=== PATIENT | female | born 1970 | race Caucasian/White ===

== ENCOUNTER 2018-04-17 18:45 | Emergency (ER) | payer SELFPAY ==
[2018-04-17] MEDS ORDERED: ACETAMINOPHEN 325 MG TABLET ONE (19:27)
--- NOTE | 2018-04-17 20:15 | RAD REPORT ---
EXAM DESCRIPTION: RAD - Wrist Left 3 View - 04/17/2018 7:39 pm CLINICAL HISTORY: Left wrist pain status post injury FINDINGS: No fracture or dislocation is seen. If the patient continues to have symptoms to suggest an occult fracture then a followup plain film se sia in 7 days would be recommended
--- NOTE | 2018-04-17 20:15 | RAD REPORT ---
EXAM DESCRIPTION: RAD - Forearm Left - 04/17/2018 7:39 pm CLINICAL HISTORY: Left forearm pain status post injury FINDINGS: No fracture is seen
--- NOTE | 2018-04-17 20:22 | EDPHYS ---
Physician Documentation [facility] Name: Cora Mireles Age: 48 yrs Sex: Female : 1970 Arrival Date: 04/17/2018 Time: 18:47 Bed 13 Private MD: Siva Reyes R ED Physician Jeancarlos Spicer HPI: 04/17 19:09 This 48 yrs old Female presents to ER via Ambulatory with complaints of Arm cp Injury. 19:09 The patient or guardian complains of injury, pain, that is acute, tenderness. The cp complaints affect the left wrist and palmar aspect of left forearm. 19:10 Context: resulted from a fall, while walking. cp 19:10 Onset: The symptoms/episode began/occurred 5 day(s) ago. Treatment prior to arrival cp includes: chelo wrap, icing the affected extremity. Associated signs and symptoms: Pertinent negatives: decreased range of motion, numbness. 19:[address] Reyes this week and being told to ice wrist. No xrays were cp taken. Pain became worse after striking wrist against door. 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 - Social history:: Smoking status: Patient uses tobacco products, smokes one pack cigarettes per day. - Ebola Screening: : Patient denies travel to an Ebola-affected area in the 21 days before illness onset. ROS: 19:15 Constitutional: Negative for body aches, chills, fever, poor PO intake. cp 19:15 Neck: Negative for pain with movement, pain at rest, stiffness. cp 19:15 Cardiovascular: Negative for chest pain, palpitations. 19:15 Respiratory: Negative for cough, shortness of breath, wheezing. 19:15 MS/extremity: Positive for pain, swelling, tenderness, of the left wrist, Negative for deformity, paresthesias. 19:15 Skin: Negative for cellulitis, rash. 19:15 Neuro: Negative for altered mental status, headache, weakness. 19:15 All other systems are negative. Exam: 19:25 Constitutional: The patient appears in no acute distress, alert, awake, non-toxic, well cp developed, well nourished. 19:25 Head/Face: Normocephalic, atraumatic. cp 19:25 Eyes: Periorbital structures: appear normal, Conjunctiva: normal, no exudate, no injection, Lids and lashes: appear normal, bilaterally. 19:25 ENT: External ear(s): are unremarkable, Nose: is normal, Posterior pharynx: is normal, airway is patent, no erythema, no exudate. 19:25 Neck: External neck: is normal, ROM/movement: is normal, is supple, without pain, no range of motions limitations, no nuchal rigidity. 19:25 Chest/axilla: Inspection: normal. 19:25 Cardiovascular: Rate: normal. 19:25 Respiratory: the patient does not display signs of respiratory distress, Respirations: normal. 19:25 Abdomen/GI: Exam negative for discomfort, distension, guarding, Inspection: abdomen appears normal. 19:25 Musculoskeletal/extremity: Extremities: grossly normal except: noted in the left wrist: ecchymosis, pain, swelling, tenderness, There is no evidence of deformity. 19:25 Skin: cellulitis, is not appreciated, no rash present. Vital Signs: 18:56 BP 117 / 84; Pulse 102; Resp 20; Temp 97.6; Pulse Ox 100% on R/A; Weight 58.97 kg (R); aj1 Height 5 ft. 4 in. (162.56 cm) (R); Pain 5/10; 19:15 BP 115 / 80; Pulse 95; Resp 16; Pulse Ox 99% on R/A; aa1 18:56 Body Mass Index 22.31 (58.97 kg, 162.56 cm) aj1 MDM: 19:02 Patient medically screened. cp 20:00 Differential diagnosis: dislocation, closed fracture, contusion, tendonitis. cp 20:20 Data reviewed: vital signs, nurses notes, radiologic studies, plain films. cp 20:20 Test interpretation: by ED physician or midlevel provider: plain radiologic studies. cp Counseling: I had a detailed discussion with the patient and/or guardian regarding: the historical points, exam findings, and any diagnostic results supporting the discharge/admit diagnosis, radiology results. 20:20 Response to treatment: the patient's symptoms have mildly improved after treatment, and cp as a result, I will discharge patient. 04/17 19:08 Order name: MELYSSA Wrist LEFT 3 view; Complete Time: 20:18 cp 04/17 19:12 Order name: MELYSSA Forearm LEFT; Complete Time: 20:18 cp Administered Medications: 19:25 Drug: Tylenol 650 mg {Note: pain score of 7/10. given by diandra VALLADARES.} Route: PO; aa1 20:30 Follow up: Response: No adverse reaction rr5 Disposition: 21:00 Chart complete. cp Disposition: 04/17/18 20:21 Discharged to Home. Impression: Pain in left wrist. - Condition is Stable. - Discharge Instructions: Wrist Pain. - Prescriptions for Tramadol 50 mg Oral Tablet - take 1 tablet by ORAL route every 8 hours as needed; 12 tablet. - Medication Reconciliation Form, Thank You Letter, Antibiotic Education, Prescription Opioid Use form. - Follow up: Gabe Nelson MD; When: 2 - 3 days; Reason: Recheck today's complaints. - Problem is new. - Symptoms have improved. Addendum: 04/19/2018 04:08 Co-signature as Attending Physician, Jeancarlos Spicer MD I agree with the assessment and w a plan of care. Signatures: Dispatcher [employer] EDLuz Maria Jeff RN RN aj1 Modesta Anne RN RN aa1 Mark Berumen PA PA cp Jeancarlos Spicer MD MD wa Roque, Raymond RN rr5 Corrections: (The following items were deleted from the chart) 04/17 20:50 20:21 04/17/2018 20:21 Discharged to Home. Impression: Pain in left wrist. Condition is aa1 Stable. Forms are Medication Reconciliation Form, Thank You Letter, Antibiotic Education, Prescription Opioid Use. Follow up: Dr. Gabe Nelson; When: 2 - 3 days; Reason: Recheck today's complaints. Problem is new. Symptoms have improved. cp
--- NOTE | 2018-04-17 20:22 | ER ---
Nurse's Notes [facility] Name: Cora Mireles Age: 48 yrs Sex: Female : 1970 Arrival Date: 04/17/2018 Time: 18:47 Bed 13 Private MD: Siva Reyes R Diagnosis: Pain in left wrist Presentation: 04/17 18:51 Presenting complaint: Patient states: "last Saturday I was walking my dog and I tripped aj1 over him and I landed on my knees and my hands, my left hand was bruised and swollen. I saw Dr. Reyes and he said to ice it and if the pain got worse to come to the ER. Today I hit the door with my hand and it started hurting bad.". Transition of care: patient was not received from another setting of care. Onset of symptoms was April 17, 2018. Risk Assessment: Do you want to hurt yourself or someone else? Patient reports no desire to harm self or others. Initial Sepsis Screen: Does the patient meet any 2 criteria? HR > 90 bpm. No. Patient's initial sepsis screen is negative. Does the patient have a suspected source of infection? No. Patient's initial sepsis screen is negative. Care prior to arrival: None. 18:51 Method Of Arrival: Ambulatory aj1 18:51 Acuity: STEPHEN 4 aj1 Triage Assessment: 18:56 General: Appears in no apparent distress. comfortable, Behavior is calm, cooperative, aj1 appropriate for age. Pain: Complains of pain in left arm Pain currently is 5 out of 10 on a pain scale. Neuro: Level of Consciousness is awake, alert, obeys commands. Cardiovascular: Patient's skin is warm and dry. Respiratory: Airway is patent Respiratory effort is even, unlabored, Respiratory pattern is regular, symmetrical. Musculoskeletal: Range of motion: limited in left wrist. Injury Description: Patient fell from standing position. 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 - Social history:: Smoking status: Patient uses tobacco products, smokes one pack cigarettes per day. - Ebola Screening: : Patient denies travel to an Ebola-affected area in the 21 days before illness onset. Screenin:00 Abuse screen: Denies threats or abuse. Denies injuries from another. Nutritional aa1 screening: No deficits noted. Tuberculosis screening: No symptoms or risk factors identified. Fall Risk None identified. Assessment: 19:15 General: Appears in no apparent distress. uncomfortable, Behavior is calm, cooperative. aa1 Pain: Complains of pain in left arm Pain does not radiate. Pain currently is 7 out of 10 on a pain scale. Quality of pain is described as aching, Pain began gradually, Is intermittent, Alleviated by medications, Aggravated by increased activity, repositioning, weight bearing. 19:15 Neuro: Level of Consciousness is awake, alert, obeys commands, Oriented to person, aa1 place, time, situation, Cardiovascular: Reports None. Respiratory: Airway is patent. GI: Abdomen is flat, Patient currently denies epigastric pain, nausea, vomiting. : No signs and/or symptoms were reported regarding the genitourinary system. EENT: No signs and/or symptoms were reported regarding the EENT system. Derm: No signs and/or symptoms reported regarding the dermatologic system. Skin is intact, Skin is dry, Skin is pink, warm \\T\\ dry. Musculoskeletal: Capillary refill < 3 seconds, Range of motion: limited in left arm. 20:48 Reassessment: Patient appears in no apparent distress at this time. Patient is alert, aa1 oriented x 3, equal unlabored respirations, skin warm/dry/pink. discuss follow up instruction and medication denies question and concern at this time. Vital Signs: 18:56 BP 117 / 84; Pulse 102; Resp 20; Temp 97.6; Pulse Ox 100% on R/A; Weight 58.97 kg (R); aj1 Height 5 ft. 4 in. (162.56 cm) (R); Pain 5/10; 19:15 BP 115 / 80; Pulse 95; Resp 16; Pulse Ox 99% on R/A; aa1 18:56 Body Mass Index 22.31 (58.97 kg, 162.56 cm) aj1 ED Course: 18:47 Patient arrived in ED. sb2 18:48 Siva Reyes MD is Private Physician. sb2 18:50 Mark Berumen PA is PHCP. cp 18:50 Jeancarlos Spicer MD is Attending Physician. cp 18:55 Triage completed. aj1 18:56 Arm band placed on Patient placed in an exam room. aj1 19:39 XRAY Wrist LEFT 3 view In Process Unspecified. EDMS 19:39 XRAY Forearm LEFT In Process Unspecified. EDMS 20:00 Patient has correct armband on for positive identification. Bed in low position. Call aa1 light in reach. 20:00 No provider procedures requiring assistance completed. Patient did not have IV access aa1 during this emergency room visit. 20:21 Gabe Nelson MD is Referral Physician. cp 20:48 Velcro wrist splint applied to left wrist. aa1 Administered Medications: 19:25 Drug: Tylenol 650 mg {Note: pain score of 7/10. given by chilo VALLADARES.} Route: PO; aa1 20:30 Follow up: Response: No adverse reaction rr5 Outcome: 20:00 Discharged to home ambulatory. aa1 20:00 Condition: stable 20:00 Discharge instructions given to patient, Instructed on discharge instructions, follow up and referral plans. medication usage, Demonstrated understanding of instructions, follow-up care, medications, Prescriptions given X 1. 20:21 Discharge ordered by MD. cp 20:50 Patient left the ED. aa1 Signatures: Dispatcher [employer] EDLuz Maria Jeff RN RN aj1 Modesta Anne RN RN aa1 Mark Berumen PA PA cp Jade Lowry sb2 Chilo Henry, BLAINE RN rr5 Corrections: (The following items were deleted from the chart) 20:55 20:53 Reassessment: Patient appears in no apparent distress at this time. Patient is aa1 alert, oriented x 3, equal unlabored respirations, skin warm/dry/pink. discuss follow up instruction and medication denies question and concern at this time. aa1
== END 2018-04-17 20:50 | disposition home or self-care (01) ==
LOC: ER 18:45
DX: M25.532 Pain in left wrist (principal); F17.210 Nicotine dependence, cigarettes, uncomplicated; Z88.6 Allergy status to analgesic agent
CPT/HCPCS: 99284

== ENCOUNTER 2019-04-07 11:06 | Emergency (ER) | payer SELFPAY ==
[2019-04-07] MEDS ORDERED: MORPHINE 4 MG/ML SYR ONE ×2 (11:53→12:47)
[2019-04-07] MEDS ORDERED: NA CHLORIDE 0.9% 1,000 ML ONE (11:54)
[2019-04-07] MEDS ORDERED: ONDANSETRON 4 MG/2 ML VIAL ONE (11:54)
[2019-04-07 12:21] LABS: Basophils % 1.2 % (0-1.3); Hematocrit 28.2 % (36.0-45.0); Lymphocytes % 39.1 % (15.3-44.8); MPV 9.2 fL (7.6-11.3); RBC Red Blood Cell Count 3.69 M/uL (3.86-4.86)
[2019-04-07 13:21] LABS: ALT/SGPT 25 U/L (12-78); AST/SGOT 35 U/L (15-37); Albumin 3.7 g/dL (3.4-5.0); Alkaline Phosphatase 164 U/L (45-117); BUN Blood Urea Nitrogen 11 mg/dL (7-18); Bicarbonate 28 mmol/L (21-32); Bilirubin Direct < 0.1 mg/dL (0-0.2); Bilirubin Total 0.3 mg/dL (0.2-1.0); Glucose Level 89 mg/dL (74-106); Lipase 208 U/L (73-393); Potassium 3.7 mmol/L (3.5-5.1); Protein, Total 7.9 g/dL (6.4-8.2); Sodium Level 137 mmol/L (136-145)
[2019-04-07 13:30] LABS: Anisocytosis 2+; Blood Morphology Comment NOTED (NOT SEEN); Platelet Estimate ADEQ; Urine White Blood Cell Casts OK
[2019-04-07 13:31] LABS: Ovalocytes 1+; Rouleau NOTED
[2019-04-07] MEDS ORDERED: FENTANYL CITR 100 MCG/2 ML ONE ×2 (13:58→15:50)
--- NOTE | 2019-04-07 14:00 | RAD REPORT ---
EXAM DESCRIPTION: CT - Abdomen Pelvis W Contrast - 04/07/2019 1:36 pm CLINICAL HISTORY: ABD PAIN, prior gastric bypass, appendectomy, hysterectomy and cholecystectomy. COMPARISON: CT June 2017 and February 2014 TECHNIQUE: Biphasic, helical CT imaging of the abdomen and pelvis was performed following 100 ml non -ionic IV contrast. No oral contrast administered All CT scans are performed using dose optimization technique as appropriate and may include automated exposure control or mA/KV adjustment according to patient size. FINDINGS: No suspicious findings in the lung bases. Liver size is normal. No focal liver lesion is identifiable. There is very significant intrahepatic a nd extrahepatic biliary tree dilatation. Pattern is similar to both comparison studies. No suspicion for a duct stone or mass. This is greater than typical physiologic dilatation. Patient could have a c hronic stricture. Gallbladder and biliary tree are also without suspicious finding. Symmetric renal function is seen with no hydronephrosis or suspicious renal mass. No pyelonephritis o r acute parenchymal process. No bladder abnormalities. No adrenal abnormalities. No dilated bowel loops or bowel wall thickening. Moderate stool volume is present throughout the tort uous colon. Contrast material is present in the left side of the colon. This is potentially bismuth m edication. No p.o. contrast was administered for this exam. No free air, free fluid or inflammatory s tranding. No hernia, mass or bulky lymphadenopathy. No suspicious bony findings. IMPRESSION: Contrast enhanced CT abdomen and pelvis showing no acute finding. Patient has significant intrahepatic and extrahepatic biliary tree dilatation that is chronic in pres entation. Patient could have a stricture in the distal biliary tree. No acute finding suspected.
--- NOTE | 2019-04-07 16:36 | ER ---
Nurse's Notes [facility] Name: Cora Mireles Age: 49 yrs Sex: Female : 1970 Arrival Date: 04/07/2019 Time: 11:08 Bed 18 Private MD: Siva Reyes R Diagnosis: Unspecified abdominal pain Presentation: 04/07 11:16 Presenting complaint: Patient states: mid abd pain, coffee ground stools x 3 days. sv Transition of care: patient was not received from another setting of care. Onset of symptoms was April 04, 2019. Risk Assessment: Do you want to hurt yourself or someone else? Patient reports no desire to harm self or others. Care prior to arrival: Medication(s) given: Tylenol #3 2 tabs taken today. 11:16 Method Of Arrival: Ambulatory sv 11:16 Acuity: STEPHEN 3 sv 11:45 Initial Sepsis Screen: Does the patient meet any 2 criteria? No. Patient's initial aj1 sepsis screen is negative. Does the patient have a suspected source of infection? Yes: Acute abdominal pain. Triage Assessment: 11:18 General: Appears in no apparent distress. uncomfortable, Behavior is cooperative, sv appropriate for age, anxious. Pain: Complains of pain in abdomen. Neuro: Level of Consciousness is awake, alert, obeys commands, Gait is steady. Respiratory: Respiratory effort is even, unlabored, Respiratory pattern is regular, symmetrical. Historical: - Allergies: 11:18 NSAIDS; sv - PMHx: 11:18 Crohn's; RLS; sv - PSHx: 11:18 Gastric Bypass; Appendectomy; Hysterectomy; Cholecystectomy; Tonsillectomy; sv - Immunization history:: Adult Immunizations up to date. - Ebola Screening: : Patient denies travel to an Ebola-affected area in the 21 days before illness onset. - Social history:: Smoking status: . Screenin:43 Abuse screen: Denies threats or abuse. Denies injuries from another. Nutritional aj1 screening: No deficits noted. Tuberculosis screening: No symptoms or risk factors identified. Assessment: 11:43 General: Appears in no apparent distress. uncomfortable, Behavior is calm, cooperative, aj1 appropriate for age. Pain: Complains of pain in abdomen diffusely Pain does not radiate. Pain currently is 9 out of 10 on a pain scale. Neuro: Level of Consciousness is awake, alert, obeys commands, Oriented to person, place, time, situation. Cardiovascular: Patient's skin is warm and dry. Respiratory: Airway is patent Respiratory effort is even, unlabored, Respiratory pattern is regular, symmetrical. GI: Abdomen is non-distended, Bowel sounds present X 4 quads. Abd is soft X 4 quads Abd is non tender X 4 quads Reports diarrhea, nausea. : No signs and/or symptoms were reported regarding the genitourinary system. EENT: No signs and/or symptoms were reported regarding the EENT system. Derm: No signs and/or symptoms reported regarding the dermatologic system. Skin is pink, warm \T\ dry. normal. Musculoskeletal: No signs and/or symptoms reported regarding the musculoskeletal system. Circulation, motion, and sensation intact. 12:30 Reassessment: Patient states that her pain has not gotten any better. Notified PFabian Goncalves NP. 12:45 Reassessment: Patient appears in no apparent distress at this time. No changes from aj1 previously documented assessment. Patient and/or family updated on plan of care and expected duration. Pain level reassessed. Patient is alert, oriented x 3, equal unlabored respirations, skin warm/dry/pink. 13:41 Reassessment: Patient states that she is still having a lot of pain. Notified PFabian Goncalves NP. Vital Signs: 11:18 BP 142 / 70; Pulse 70; Resp 20; Temp 98(O); Pulse Ox 99% ; Weight 58.97 kg; Height 5 sv ft. 5 in. (165.10 cm); Pain 9/10; 12:49 BP 143 / 91; Pulse 57; Resp 17; Temp 97.6(TE); Pulse Ox 100% on R/A; mh5 14:49 BP 133 / 85; Pulse 49; Resp 16; Temp 98.1(TE); Pulse Ox 100% on R/A; mh5 11:18 Body Mass Index 21.63 (58.97 kg, 165.10 cm) sv ED Course: 11:08 Patient arrived in ED. as 11:08 Siva Reyes MD is Private Physician. as 11:17 Triage completed. sv 11:18 Arm band placed on. sv 11:22 Sebastian Goncalves NP is PHCP. pm1 11:22 Mark Prater MD is Attending Physician. pm1 11:34 Patient has correct armband on for positive identification. Bed in low position. Call [facility] light in reach. Side rails up X 1. Adult w/ patient. Pulse ox on. NIBP on. 11:38 Luz Maria Cox RN is Primary Nurse. aj1 11:43 No provider procedures requiring assistance completed. aj1 12:12 Initial lab(s) drawn, by tx, sent to lab. Inserted saline lock: 22 gauge in right hand, [facility] using aseptic technique. 12:13 Basic Metabolic Panel Sent. 5 12:13 CBC with Diff Sent. 5 12:13 Creatinine for Radiology Sent. 5 12:13 Hepatic Function Sent. 5 12:13 Lipase Sent. 5 12:21 Inserted saline lock: 22 gauge in left antecubital area, using aseptic technique. aj1 13:37 CT Abd/Pelvis - IV Contrast Only In Process Unspecified. 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 aj1 17:07 Awaiting: completion of IV abx PRIOR to discharge. tw2 Administered Medications: 12:20 Drug: morphine 4 mg Route: IVP; Site: left antecubital; aj1 13:00 Follow up: Response: No adverse reaction; Pain is decreased; RASS: Alert and Calm (0) aj1 12:20 Drug: Zofran 4 mg Route: IVP; Site: left antecubital; aj1 12:20 Drug: NS 0.9% 1000 ml Route: IV; Rate: 1000 ml; Site: left antecubital; aj1 12:50 Drug: morphine 4 mg Route: IVP; Site: left antecubital; aj1 14:00 Drug: fentaNYL (PF) 25 mcg Route: IVP; Site: right antecubital; aj1 15:52 Follow up: Response: No adverse reaction; Pain is unchanged, physician notified ss 15:52 Drug: fentaNYL (PF) 25 mcg Route: IVP; Site: left antecubital; ss 17:02 Drug: Durand 10 mg-325 mg 1 tabs Route: PO; tw2 17:06 Drug: Flagyl 500 mg Volume: 100 ml; Route: IVPB; Rate: 200 ml/hr; Infused Over: 30 tw2 mins; Site: left antecubital; 17:07 Drug: Cipro 500 mg Route: PO; tw2 Outcome: 16:35 Discharge ordered by pm1 18:20 Patient left the ED. ss Signatures: Dispatcher [employer] EDLuz Maria Jeff RN RN aj1 Ana María Hernandez RN RN sv Martinez, Amelia as Smirch, Shelby, RN RN ss Sebastian Goncalves, WIRELESS CELLULAR TECHNICIAN WIRELESS CELLULAR TECHNICIAN pm1 Nadiya Fuller RN RN tw2 Lea Iqbal [facility] Corrections: (The following items were deleted from the chart) 11:19 11:18 Pulse 70bpm; Resp 20bpm; sv sv 11:20 11:18 BP 85 / 70; Pulse 70bpm; Resp 20bpm; Pulse Ox 99%; Temp 98F Oral; 58.97 kg; sv Height 5 ft. 5 in.; BMI: 21.6; Pain 9/10; sv 11:37 11:35 BP 116 / 58; Pulse 69bpm; Resp 18bpm; Pulse Ox 99% RA; Temp 99.9F Oral; mh5 5 13:42 13:41 Reassessment: Patient states that she is still having a lot of pain aj1 aj1
--- NOTE | 2019-04-07 16:36 | EDPHYS ---
Physician Documentation [facility] Name: Cora Mireles Age: 49 yrs Sex: Female : 1970 Arrival Date: 04/07/2019 Time: 11:08 Bed 18 Private MD: Siva Reyes R ED Physician Mark Prater HPI: 04/07 11:46 This 49 yrs old Female presents to ER via Ambulatory with complaints of pm1 Crohns Flare. 11:46 The patient presents with abdominal pain in the right upper quadrant. pm1 11:46 Onset: The symptoms/episode began/occurred 3 day(s) ago. The symptoms do not radiate. pm1 Associated signs and symptoms: Pertinent positives: nausea, "coffee ground" stool. The symptoms are described as crampy, sharp. Modifying factors: The symptoms are alleviated by nothing, the symptoms are aggravated by food. Severity of pain: in the emergency department the pain is actually worse. The patient has experienced similar episodes in the past, today's symptoms are similar, to previous Crohn's Flare Up. The patient has not recently seen a physician, Sees Dr. Flores for GI. Historical: - Allergies: 11:18 NSAIDS; sv - PMHx: 11:18 Crohn's; RLS; sv - PSHx: 11:18 Gastric Bypass; Appendectomy; Hysterectomy; Cholecystectomy; Tonsillectomy; sv - Immunization history:: Adult Immunizations up to date. - Ebola Screening: : Patient denies travel to an Ebola-affected area in the 21 days before illness onset. - Social history:: Smoking status: . ROS: 11:46 Eyes: Negative for injury, pain, redness, and discharge, ENT: Negative for injury, pm1 pain, and discharge, Neck: Negative for injury, pain, and swelling, Cardiovascular: Negative for chest pain, palpitations, and edema, Respiratory: Negative for shortness of breath, cough, wheezing, and pleuritic chest pain. 11:46 Back: Negative for injury and pain, : Negative for injury, bleeding, discharge, and swelling, MS/Extremity: Negative for injury and deformity, Skin: Negative for injury, rash, and discoloration, Neuro: Negative for headache, weakness, numbness, tingling, and seizure. 11:46 Constitutional: Positive for poor PO intake, Negative for chills, fever. 11:46 Abdomen/GI: Positive for abdominal pain, nausea, rectal bleeding, Negative for vomiting, diarrhea. Exam: 11:46 Constitutional: This is a well developed, well nourished patient who is awake, alert, pm1 and in no acute distress. Head/Face: Normocephalic, atraumatic. Eyes: Pupils equal round and reactive to light, extra-ocular motions intact. Lids and lashes normal. Conjunctiva and sclera are non-icteric and not injected. Cornea within normal limits. Periorbital areas with no swelling, redness, or edema. ENT: Nares patent. No nasal discharge, no septal abnormalities noted. Tympanic membranes are normal and external auditory canals are clear. Oropharynx with no redness, swelling, or masses, exudates, or evidence of obstruction, uvula midline. Mucous membranes moist. Neck: Trachea midline, no thyromegaly or masses palpated, and no cervical lymphadenopathy. Supple, full range of motion without nuchal rigidity, or vertebral point tenderness. No Meningismus. Chest/axilla: Normal chest wall appearance and motion. Nontender with no deformity. No lesions are appreciated. Cardiovascular: Regular rate and rhythm with a normal S1 and S2. No gallops, murmurs, or rubs. Normal PMI, no JVD. No pulse deficits. Respiratory: Lungs have equal breath sounds bilaterally, clear to auscultation and percussion. No rales, rhonchi or wheezes noted. No increased work of breathing, no retractions or nasal flaring. 11:46 Back: No spinal tenderness. No costovertebral tenderness. Full range of motion. Skin: Warm, dry with normal turgor. Normal color with no rashes, no lesions, and no evidence of cellulitis. MS/ Extremity: Pulses equal, no cyanosis. Neurovascular intact. Full, normal range of motion. 11:46 Abdomen/GI: Inspection: abdomen appears normal, Bowel sounds: normal, Palpation: soft, mild abdominal tenderness, in the right upper quadrant, mass, is not appreciated, rebound tenderness, is not appreciated. 11:46 Neuro: Orientation: is normal, Motor: is normal, moves all fours, Sensation: is normal, no obvious gross deficits. 13:51 Abdomen/GI: Rectal exam: rectal tone normal, Stool: brown, guaiac negative, pm1 hemorrhoid(s), are not appreciated, mass, is not appreciated, swelling, is not appreciated, Solar Tech: Luz Maria VALLADARES. Vital Signs: 11:18 BP 142 / 70; Pulse 70; Resp 20; Temp 98(O); Pulse Ox 99% ; Weight 58.97 kg; Height 5 sv ft. 5 in. (165.10 cm); Pain 9/10; 12:49 BP 143 / 91; Pulse 57; Resp 17; Temp 97.6(TE); Pulse Ox 100% on R/A; mh5 14:49 BP 133 / 85; Pulse 49; Resp 16; Temp 98.1(TE); Pulse Ox 100% on R/A; mh5 11:18 Body Mass Index 21.63 (58.97 kg, 165.10 cm) sv MDM: 11:27 Patient medically screened. pm1 16:14 Physician consultation: Alessandro Whitney MD regarding CT interpretation: I discussed the pm1 findings with him and told him I considered MRCP. He said that it is not necessary because the intrahepatic and extrahepatic biliary tree dilatation is chronic in presentation. Patient has had her gallbladder removed. No acute process of biliary tree.. 16:31 Data reviewed: vital signs. Data interpreted: Pulse oximetry: on room air is 100 %. pm1 Interpretation: normal. Counseling: I had a detailed discussion with the patient and/or guardian regarding: the historical points, exam findings, and any diagnostic results supporting the discharge/admit diagnosis, lab results, radiology results, the need for outpatient follow up, to return to the emergency department if symptoms worsen or persist or if there are any questions or concerns that arise at home. 16:33 ED course: Discussed with attending Carolina Prater and Brian for Crohn's flare up is pm1 appropriate. Additionally I will discharge the patient home with pain medication and antiemetic. Recommended to patient to follow up with her GI physician. Possible additional differentials may require endoscopy to evaluate and rule out. 04/07 11:36 Order name: Basic Metabolic Panel; Complete Time: 13:26 pm1 04/07 11:36 Order name: CBC with Diff; Complete Time: 13:44 pm1 04/07 11:36 Order name: Creatinine for Radiology; Complete Time: 13:44 pm1 04/07 11:36 Order name: Hepatic Function; Complete Time: 13:26 pm1 04/07 11:36 Order name: Lipase; Complete Time: 13:26 pm1 04/07 13:31 Order name: CBC Smear Scan; Complete Time: 13:44 EDMS 04/07 11:36 Order name: CT Abd/Pelvis - IV Contrast Only; Complete Time: 15:39 pm1 04/07 13:52 Order name: Occult Blood--Ancillary; Complete Time: 15:12 bd 04/07 11:36 Order name: IV Saline Lock; Complete Time: 12:13 pm1 04/07 11:36 Order name: Labs collected and sent; Complete Time: 12:21 pm1 04/07 12:38 Order name: Labs - recollect needed; Complete Time: 12:58 bd Administered Medications: 12:20 Drug: morphine 4 mg Route: IVP; Site: left antecubital; aj1 13:00 Follow up: Response: No adverse reaction; Pain is decreased; RASS: Alert and Calm (0) aj1 12:20 Drug: Zofran 4 mg Route: IVP; Site: left antecubital; aj1 12:20 Drug: NS 0.9% 1000 ml Route: IV; Rate: 1000 ml; Site: left antecubital; aj1 12:50 Drug: morphine 4 mg Route: IVP; Site: left antecubital; aj1 14:00 Drug: fentaNYL (PF) 25 mcg Route: IVP; Site: right antecubital; aj1 15:52 Follow up: Response: No adverse reaction; Pain is unchanged, physician notified ss 15:52 Drug: fentaNYL (PF) 25 mcg Route: IVP; Site: left antecubital; ss 17:02 Drug: Dillard 10 mg-325 mg 1 tabs Route: PO; tw2 17:06 Drug: Flagyl 500 mg Volume: 100 ml; Route: IVPB; Rate: 200 ml/hr; Infused Over: 30 tw2 mins; Site: left antecubital; 17:07 Drug: Cipro 500 mg Route: PO; tw2 Disposition: 04/08 07:00 Co-signature as Attending Physician, Mark Prater MD I agree with the assessment and carolynn plan of care. Disposition: 04/07/19 16:35 Discharged to Home. Impression: Unspecified abdominal pain. - Condition is Stable. - Discharge Instructions: Abdominal Pain, Adult, Crohn Disease. - Prescriptions for Flagyl 500 mg Oral Tablet - take 1 tablet by ORAL route every 8 hours for 10 days; 30 tablet. Cipro 500 mg Oral Tablet - take 1 tablet by ORAL route every 12 hours for 10 days; 20 tablet. Tramadol 50 mg Oral Tablet - take 1 tablet by ORAL route every 8 hours as needed; 12 tablet. promethazine 25 mg Oral Tablet - take 1 tablet by ORAL route every 6 hours As needed; 20 tablet. - Medication Reconciliation Form, Thank You Letter, Antibiotic Education, Prescription Opioid Use form. - Follow up: Emergency Department; When: As needed; Reason: Worsening of condition. Follow up: Private Physician; When: 2 - 3 days; Reason: Recheck today's complaints, Continuance of care, Re-evaluation by your physician. - Problem is new. - Symptoms have improved. Signatures: Dispatcher [employer] EDMS Margarette Saenz Angela, RN RN aj1 Ana María Hernandez RN Mark Augustin MD MD cha Smirch, Shelby, RN RN ss Sebastian Goncalves, [place] [employer] TE[employer]ER pm1 Nadiya Fuller RN RN tw2 Corrections: (The following items were deleted from the chart) 04/07 18:20 16:35 04/07/2019 16:35 Discharged to Home. Impression: Unspecified abdominal pain. ss Condition is Stable. Forms are Medication Reconciliation Form, Thank You Letter, Antibiotic Education, Prescription Opioid Use. Follow up: Emergency Department; When: As needed; Reason: Worsening of condition. Follow up: Private Physician; When: 2 - 3 days; Reason: Recheck today's complaints, Continuance of care, Re-evaluation by your physician. Problem is new. Symptoms have improved. pm1
[2019-04-07] MEDS ORDERED: CIPROFLOXACIN HCL 500 MG TAB ONE (17:01)
[2019-04-07] MEDS ORDERED: HYDROCODONE/APAP 10/325 TAB ONE (17:02)
[2019-04-07] MEDS ORDERED: METRONIDAZOLE 500mg IVPB 500 MG/100 ML BAG IV ONE (17:02)
[2019-04-07 19:14] VITALS: O2SAT 100
[2019-04-07 19:16] VITALS: BP 133/85; TEMP 98.1
== END 2019-04-07 18:20 | disposition home or self-care (01) ==
LOC: ER 11:06
DX: R10.11 Right upper quadrant pain (principal); K50.90 Crohn's disease, unspecified, without complications; Z88.6 Allergy status to analgesic agent
CPT/HCPCS: 36415; 74177; 80048; 80076; 82272; 83690; 85025; 99284; J2405; J3010; J7030; Q9967

== ENCOUNTER 2019-08-16 13:51 | Emergency (ER) | payer SELFPAY ==
[2019-08-16] MEDS ORDERED: ONDANSETRON 4 MG (ODT) TAB ONE (15:06)
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
[2019-08-16 15:49] VITALS: BP 117/65; TEMP 97.8; O2SAT 100
== END 2019-08-16 15:39 | disposition home or self-care (01) ==
LOC: ER 13:51
DX: S60.417A Abrasion of left little finger, initial encounter (principal); W45.8XXA Other foreign body or object entering through skin, initial encounter; Y93.89 Activity, other specified; Y92.89 Other specified places as the place of occurrence of the external cause; F17.210 Nicotine dependence, cigarettes, uncomplicated; Z88.6 Allergy status to analgesic agent
CPT/HCPCS: 99283

== ENCOUNTER 2019-11-22 21:08 | Emergency (ER) | payer SELFPAY ==
[2019-11-22] MEDS ORDERED: HYDROCODONE/APAP 7.5/325 MG TAB ONE (21:50)
--- NOTE | 2019-11-22 22:10 | ER ---
Nurse's Notes [facility] Name: Cora Mireles Age: 49 yrs Sex: Female : 1970 Arrival Date: 11/22/2019 Time: 21:10 Bed 8 Private MD: Diagnosis: Jaw pain-left lower Presentation: 11/21 21:20 Chief complaint: Patient states: She had a broken tooth that broke more yesterday and aj1 then her left jaw started hurting and swelling and now the pain is radiating to her ear and she spoke to the dentist today but they can't get her in until next week. Coronavirus screen: Patient denies a cough. Patient denies shortness of breath or difficulty breathing. Patient reports a measured and/or subjective temperature greater than 100.4F. Patient denies travel on a cruise ship or to a country the [facility] currently lists as an affected area. Ebola Screen: Patient denies travel to an Ebola-affected area in the 21 days before illness onset. Initial Sepsis Screen: Does the patient meet any 2 criteria? No. Patient's initial sepsis screen is negative. Does the patient have a suspected source of infection? Yes: Other: dental caries. Risk Assessment: Do you want to hurt yourself or someone else? Patient reports no desire to harm self or others. Onset of symptoms was November 21, 2019. 21:20 Method Of Arrival: Ambulatory aj1 21:20 Acuity: STEPHEN 4 aj1 Triage Assessment: 21:25 General: Appears in no apparent distress. uncomfortable, Behavior is calm, cooperative, aj1 appropriate for age. Pain: Complains of pain in left jaw. Neuro: Level of Consciousness is awake, alert, obeys commands. Cardiovascular: Patient's skin is warm and dry. Respiratory: Airway is patent Respiratory effort is even, unlabored, Respiratory pattern is regular, symmetrical. 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 - Social history:: Smoking status: Patient reports the use of cigarette tobacco products, smokes one pack cigarettes per day. Screenin:39 Abuse screen: Denies threats or abuse. Denies injuries from another. Nutritional rr5 screening: No deficits noted. Tuberculosis screening: No symptoms or risk factors identified. Fall Risk None identified. Total Lowe Fall Scale indicates No Risk (0-24 pts). Assessment: 21:30 General: Appears in no apparent distress. uncomfortable, Behavior is calm, cooperative, rr5 appropriate for age. 21:30 Pain: Complains of pain in left jaw Pain radiates to left ear Pain currently is 7 out rr5 of 10 on a pain scale. Quality of pain is described as aching, Pain began gradually, Is intermittent. Neuro: Level of Consciousness is awake, alert, obeys commands, Oriented to person, place, time, situation, Appropriate for age. Cardiovascular: Capillary refill < 3 seconds Patient's skin is warm and dry. Respiratory: Airway is patent Respiratory effort is even, unlabored, Respiratory pattern is regular, symmetrical. GI: No signs and/or symptoms were reported involving the gastrointestinal system. : No signs and/or symptoms were reported regarding the genitourinary system. EENT: Dental caries noted in lower left first molar (#19) and lower left second bicuspid (#20) swelling noted left side of the jaw. Reports pain in left jaw. Derm: Skin is intact, is healthy with good turgor, Skin temperature is warm. Musculoskeletal: Circulation, motion, and sensation intact. Capillary refill < 3 seconds. 22:18 Reassessment: Patient appears in no apparent distress at this time. Patient is alert, rr5 oriented x 3, equal unlabored respirations, skin warm/dry/pink. discharge instruction given and explained without complaints made Patient states symptoms have improved. Vital Signs: 21:20 BP 124 / 82; Pulse 88; Resp 18; Temp 98.2; Pulse Ox 100% on R/A; Weight 58.97 kg (R); aj1 Height 5 ft. 7 in. (170.18 cm) (R); Pain 7/10; 21:20 Body Mass Index 20.36 (58.97 kg, 170.18 cm) aj1 ED Course: 21:10 Patient arrived in ED. cl3 21:25 Triage completed. aj1 21:25 Arm band placed on Patient placed in an exam room. aj1 21:28 hCilo Henry, RN is Primary Nurse. rr5 21:28 Mark Berumen PA is PHCP. cp 21:28 Natan Kumar MD is Attending Physician. cp 21:39 Patient has correct armband on for positive identification. Bed in low position. Call rr5 light in reach. Pulse ox on. NIBP on. 22:18 No provider procedures requiring assistance completed. Patient did not have IV access rr5 during this emergency room visit. Administered Medications: 21:43 Not Given (Physician Discretion): penicillin VK 500 mg PO once cp 21:49 Drug: Hydrocodone-Acetaminophen (7.5 mg-325 mg) 1 tabs {Note: rass 0.} Route: PO; rr5 22:19 Follow up: Response: No adverse reaction; Pain is decreased; RASS: Alert and Calm (0) rr5 21:49 Drug: Clindamycin 600 mg Route: PO; rr5 22:19 Follow up: Response: No adverse reaction rr5 Outcome: 22:09 Discharge ordered by MD. cp 22:17 Patient left the ED. rr5 22:18 Discharged to home ambulatory, with family. rr5 22:18 Condition: stable 22:18 Discharge instructions given to patient, Instructed on discharge instructions, follow up and referral plans. medication usage, Demonstrated understanding of instructions, follow-up care, medications, Prescriptions given X 2. Signatures: Luz Maria Cox RN RN aj1 Mark Berumen PA PA cp Chilo Henry, RN RN rr5 Mitzi Jefferson cl3
--- NOTE | 2019-11-22 22:10 | EDPHYS ---
Physician Documentation [facility] Name: Cora Mireles Age: 49 yrs Sex: Female : 1970 Arrival Date: 11/22/2019 Time: 21:10 Bed 8 Private MD: ED Physician Natan Kumar HPI: 11/21 21:44 This 49 yrs old Female presents to ER via Ambulatory with complaints of Jaw cp Pain. 21:45 The patient presents with broken tooth/teeth, pain. The problem is located in the left cp lower jaw. Onset: The symptoms/episode began/occurred yesterday. Duration: The symptoms are continuous, and are steadily getting worse. Associated signs and symptoms: Pertinent positives: swelling, mandibular, Pertinent negatives: dysphagia, fever, inability to eat. Severity of symptoms: in the emergency department the symptoms are actually worse, moderately. 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 - Social history:: Smoking status: Patient reports the use of cigarette tobacco products, smokes one pack cigarettes per day. ROS: 21:50 Constitutional: Negative for body aches, chills, fever, poor PO intake. cp 21:50 Eyes: Negative for injury, pain, redness, and discharge. cp 21:50 ENT: Positive for dental pain, Teeth pain Negative for ear pain, sore throat, difficulty swallowing, difficulty handling secretions. 21:50 Cardiovascular: Negative for chest pain. 21:50 Respiratory: Negative for cough. 21:50 Abdomen/GI: Negative for abdominal pain, nausea, vomiting, and diarrhea. 21:50 Neuro: Negative for altered mental status, headache. 21:50 All other systems are negative. Exam: 21:55 Constitutional: The patient appears in no acute distress, alert, awake, non-toxic, well cp developed, well nourished, uncomfortable. 21:55 Head/face: Noted is swelling, that is mild, of the left jaw, tenderness, that is cp moderate, of the left jaw. 21:55 Eyes: Periorbital structures: appear normal, Conjunctiva: normal, no exudate, no injection, Sclera: no appreciated abnormality, Lids and lashes: appear normal, bilaterally. 21:55 ENT: External ear(s): are unremarkable, Ear canal(s): are normal, clear, TM's: bulging, is not appreciated, bilaterally, dullness, bilaterally, erythema, is not appreciated, bilaterally, Nose: is normal, Mouth: Lips: moist, Oral mucosa: pink and intact, moist, Tongue: is normal, Posterior pharynx: is normal, airway is patent, no erythema, no exudate, Dental exam: abscess, is not appreciated, dental caries, that is severe, diffusely, fractured teeth are noted, specifically the lower left first bicuspid (#21) and lower left cuspid (#22), gum swelling, not appreciated, missing teeth, diffusely, pain, that is moderate, specifically in the lower left first bicuspid (#21) and lower left cuspid (#22). 21:55 Neck: ROM/movement: is normal, is supple, without pain, no range of motions limitations, no nuchal rigidity. 21:55 Chest/axilla: Inspection: normal. 21:55 Cardiovascular: Rate: normal. 21:55 Respiratory: the patient does not display signs of respiratory distress, Respirations: normal, no use of accessory muscles, no retractions, labored breathing, is not present. Vital Signs: 21:20 BP 124 / 82; Pulse 88; Resp 18; Temp 98.2; Pulse Ox 100% on R/A; Weight 58.97 kg (R); aj1 Height 5 ft. 7 in. (170.18 cm) (R); Pain 7/10; 21:20 Body Mass Index 20.36 (58.97 kg, 170.18 cm) aj1 MDM: 21:33 Patient medically screened. cp 22:05 Differential diagnosis: dental caries, dental abscess, pericoronitis. cp 22:08 Data reviewed: vital signs, nurses notes, and as a result, I will discharge patient. cp 22:08 Counseling: I had a detailed discussion with the patient and/or guardian regarding: the cp historical points, exam findings, and any diagnostic results supporting the discharge/admit diagnosis, the need for outpatient follow up, for definitive care, a dentist, to return to the emergency department if symptoms worsen or persist or if there are any questions or concerns that arise at home. 22:08 Response to treatment: the patient's symptoms have mildly improved after treatment, and cp as a result, I will discharge patient. Administered Medications: 21:43 Not Given (Physician Discretion): penicillin VK 500 mg PO once cp 21:49 Drug: Hydrocodone-Acetaminophen (7.5 mg-325 mg) 1 tabs {Note: rass 0.} Route: PO; rr5 22:19 Follow up: Response: No adverse reaction; Pain is decreased; RASS: Alert and Calm (0) rr5 21:49 Drug: Clindamycin 600 mg Route: PO; rr5 22:19 Follow up: Response: No adverse reaction rr5 Disposition: 22:20 Chart complete. cp Disposition: 11/22/19 22:09 Discharged to Home. Impression: Jaw pain - left lower. - Condition is Stable. - Discharge Instructions: Dental Pain. - Prescriptions for Clindamycin HCl 300 mg Oral Capsule - take 1 capsule by ORAL route every 6 hours for 10 days; 40 capsule. Tylenol- Codeine #3 300-30 mg Oral Tablet - take 2 tablets by ORAL route every 6 hours As needed; 15 tablet. - Medication Reconciliation Form, Thank You Letter, Antibiotic Education, Prescription Opioid Use form. - Follow up: Private Physician; When: 2 - 3 days; Reason: Recheck today's complaints. - Problem is new. - Symptoms have improved. Addendum: 11/24/2019 07:13 Co-signature as Attending Physician, Natan Kumar MD I agree with the assessment and t w4 plan of care. Signatures: Luz Maria Cox, RN RN aj1 Mark Berumen PA PA cp Natan Kumar MD MD tw4 Chilo Henry RN RN rr5 Corrections: (The following items were deleted from the chart) 11/21 22:17 22:09 11/22/2019 22:09 Discharged to Home. Impression: Jaw pain - left lower. Condition rr5 is Stable. Forms are Medication Reconciliation Form, Thank You Letter, Antibiotic Education, Prescription Opioid Use. Follow up: Private Physician; When: 2 - 3 days; Reason: Recheck today's complaints. Problem is new. Symptoms have improved. cp
[2019-11-22 22:23] VITALS: BP 124/82; TEMP 98.2; O2SAT 100
== END 2019-11-22 22:17 | disposition home or self-care (01) ==
LOC: ER 21:08
DX: R68.84 Jaw pain (principal); S02.5XXA Fracture of tooth (traumatic), initial encounter for closed fracture; F17.210 Nicotine dependence, cigarettes, uncomplicated; Z88.6 Allergy status to analgesic agent
CPT/HCPCS: 99283

== ENCOUNTER 2019-12-27 21:35 | Emergency (ER) | payer SELFPAY ==
--- OUTSIDE RECORDS SUMMARY | 2019-12-27 21:38 | XMS REPORT | Continuity of Care Document ---
:1970 Author Organization [facility] t Address [address] [place] [address] [address] [place] [address] Care Team Providers Name Role Phone Lab, Fam Pob I Attending Clinician Unavailable Problems This patient has no known problems. Allergies, Adverse Reactions, Alerts This patient has no known allergies or adverse reactions. Medications This patient has no known medications. Procedures This patient has no known procedures. Encounters Start End Encounter Admission Attending Care Care Encounter Source Date/Time Date/Time Type Type Clinicians Facility Department ID 2019-12-14 2019-12-14 Laboratory Lab, [facility] [id number] 07:35:08 07:46:48 Only Fam Pob I [place] [id number] [place] [id number] Sean [phone] nal 044 [address] One Results This patient has no known results.
--- OUTSIDE RECORDS SUMMARY | 2019-12-27 21:38 | XMS REPORT | Summary of Care ---
:1970 Author Organization [facility] - [facility] Address [address] [place] [id number] Care Team Providers Name Role Phone Unavailable Primary Care Provider Unavailable Reason for Visit Reason Comments Exposure asymptomatic- covid Encounter Details Date Type Department Care Team Description 12/14/2019 Laboratory Only [facility] Family RosemarieNagi, LINUX SOLARIS ADMINISTRATOR [address] [place] [phone] Suspected Covid-19 [facility] Lab, Adc Fam Pob I Virus Infection [address] [place] [address] (Primary D x) [place] [address] Allergies Not on Filedocumented as of this encounter (statuses as of 12/14/2019) Medications Not on filedocumented as of this encounter (statuses as of 12/14/2019) Active Problems Not on filedocumented as of this encounter (statuses as of 12/14/2019) Social History Tobacco Use Types Packs/Day Years Used Date Never Assessed Sex Assigned at Date Recorded Not on file Job Start Date Occupation Industry Not on file Not on file Not on file Travel History Travel Start Travel End No recent travel history available. COVID-19 Exposure Response Date Recorded In the last month, have you been in contact with Yes 12/14/2019 7:35 AM CDT someone who was confirmed or suspected to have Coronavirus / COVID-19? documented as of this encounter Last Filed Vital Signs Not on filedocumented in this encounter Plan of Treatment Name Type Priority Associated Diagnoses Order S chedule COVID-19 (PCR MOLECULAR LAB Routine Suspected Covid-1 9 Virus Expected: 12/14/2019, TESTING) Infection Expires: 2020 Health Maintenance Due Date Last Done Comments DTaP,Tdap,and Td Vaccines (1 - 01/27/1980 Tdap) Depression Screening 1981 PAP SMEAR 1990 Breast Cancer Screening 2009 (MAMMOGRAM) COLONOSCOPY 2019 Zoster Recombinant Vaccine 2019 (SHINGRIX) (1 of 2) INFLUENZA VACCINE (#1) 2020 PNEUMOCOCCAL 0-64 YEARS COMBINED Aged Out No longer eligible based on SERIES patient's age to complete this topic documented as of this encounter Results Not on filedocumented in this encounter Visit Diagnoses Diagnosis Suspected Covid-19 Virus Infection - [facility] documented in this encounter Additional Health Concerns Infection Onset Date Last Indicated Resolved Time COVID-19 Rule Out 12/14/2019 12/14/2019 documented as of this encounter
--- OUTSIDE RECORDS SUMMARY | 2019-12-27 21:38 | XMS REPORT | Summary of Care ---
:1970 Author Organization [facility] - [facility] Address [address] [place] [id number] Care Team Providers Name Role Phone Unavailable Primary Care Provider Unavailable Reason for Visit Reason Comments Exposure asymptomatic- covid Encounter Details Date Type Department Care Team Description 12/14/2019 Laboratory Only [facility] Family Rosemarie Nagi ovidio, PHOTORESIST PRINTER [address] [place] [phone] Suspected Covid-19 [facility] Lab, Adc Fam Pob I Virus Infection [address] [place] [address] (Primary D x) [place] [address] Allergies Not on Filedocumented as [...] of Treatment Name Type Priority Associated Diagnoses Date/Ti me COVID-19 (PCR MOLECULAR LAB Routine Suspected Covid-1 9 Virus 12/14/2019 7:35 AM CDT TESTING) Infection Name Type Priority Associated Diagnoses Order S trey COVID-19 (PCR MOLECULAR LAB Routine Suspected Covid-1 [...] Diagnoses Diagnosis Suspected Covid-19 Virus Infection - Billie delarosa documented in this encounter Additional Health Concerns Infection Onset Date Last Indicated Resolved Time COVID-19 Rule Out 12/14/2019 12/14/2019 documented as of this encounter
[2019-12-27] MEDS ORDERED: TRAMADOL HCL 50 MG TAB ONE (22:19)
--- NOTE | 2019-12-27 23:01 | EDPHYS ---
Physician Documentation [facility] Name: Cora Mireles Age: 49 yrs Sex: Female : 1970 Arrival Date: 12/27/2019 Time: 21:37 Bed 14 Private MD: ED Physician Tiburcio Mcginnis HPI: 12/26 21:58 This 49 yrs old Female presents to ER via Ambulatory with complaints of Right cp Leg Pain. 22:00 The patient presents with decreased range of motion, an injury, pain, that is acute. cp The complaints affect the right quadriceps and right knee. Context: resulted from the patient falling, the patient can fully bear weight, the patient is able to ambulate, with moderate difficulty. Onset: The symptoms/episode began/occurred today. 22:00 Associated signs and symptoms: Pertinent negatives numbness, deformity. Treatment prior cp to arrival includes: over the counter medications, Tylenol. 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 - Social history:: Smoking status: Patient denies any tobacco usage or history of. ROS: 22:05 Constitutional: Negative for body aches, chills, fever, poor PO intake. cp 22:05 Eyes: Negative for injury, pain, redness, and discharge. cp 22:05 ENT: Negative for ear pain, sore throat, difficulty swallowing, difficulty handling secretions. 22:05 Cardiovascular: Negative for chest pain, edema, palpitations. 22:05 Respiratory: Negative for cough, shortness of breath, wheezing. 22:05 MS/extremity: Positive for pain, tenderness, of the right leg, Negative for deformity, paresthesias. 22:05 All other systems are negative. Exam: 22:10 Constitutional: The patient appears in no acute distress, alert, awake, well developed, cp well nourished. 22:10 Musculoskeletal/extremity: Extremities: grossly normal except: noted in the right leg: cp pain, tenderness, There is no evidence of deformity, Perfusion: the extremity is normally perfused throughout, Sensation intact. Joints: the right knee displays painful range of motion, tenderness. Vital Signs: 21:44 BP 142 / 70; Pulse 88; Resp 16; Pulse Ox 100% on R/A; Height 8 ft. (243.84 cm); sg MDM: 21:52 Patient medically screened. cp 22:45 Differential diagnosis: dislocation, closed fracture, contusion. cp 22:50 Test interpretation: by ED physician or midlevel provider: xrays of right fenur cp negative for fracture and xrays of right tib/fib negative for fracture. 23:00 Data reviewed: vital signs, nurses notes, radiologic studies, plain films, and as a cp result, I will discharge patient. 23:00 Counseling: I had a detailed discussion with the patient and/or guardian regarding: the cp historical points, exam findings, and any diagnostic results supporting the discharge/admit diagnosis, radiology results, to return to the emergency department if symptoms worsen or persist or if there are any questions or concerns that arise at home. 23:09 ED course: website for [facility] prescription monitoring shows patient received RX for 28 cp Hydrocodone 7.5 on 12/23/2019. 12/26 21:58 Order name: XRAY Femur RIGHT cp 12/26 21:58 Order name: XRAY Tib Fib RIGHT cp 12/26 22:52 Order name: Crutches; Complete Time: 23:33 cp 12/26 22:52 Order name: Knee Immobilizer; Complete Time: 23:33 cp Administered Medications: 22:12 Drug: UltRAM 50 mg {Note: Rass score 0.} Route: PO; jb4 23:37 Follow up: Response: No adverse reaction jb4 Disposition: 23:15 Chart complete. cp 12/27 07:23 Co-signature as Attending Physician, Tiburcio Mcginnis MD. mh7 Disposition: 12/27/19 23:01 Discharged to Home. Impression: Pain in right knee, Pain in right leg. - Condition is Stable. - Discharge Instructions: Knee Immobilizer, Knee Pain. - Prescriptions for Cyclobenzaprine 10 mg Oral Tablet - take 1 tablet by ORAL route every 8 hours As needed; 20 tablet. - Medication Reconciliation Form, Thank You Letter, Antibiotic Education, Prescription Opioid Use form. - Follow up: Private Physician; When: 2 - 3 days; Reason: Worsening of condition. - Problem is new. - Symptoms have improved. Signatures: Dispatcher [employer] EDMS Chon Caballero RN RN sg Mark Berumen PA PA cp Perry Sanchez RN RN jb4 Tiburcio Mcginnis MD MD mh7 Sandy Richards RN RN mt2 Corrections: (The following items were deleted from the chart) 12/26 21:58 21:55 This 49 yrs old Female presents to ER via Ambulatory with complaints of cp Knee Pain. cp 23:37 23:01 12/27/2019 23:01 Discharged to Home. Impression: Pain in right knee; Pain in mt2 right leg. Condition is Stable. Forms are Medication Reconciliation Form, Thank You Letter, Antibiotic Education, Prescription Opioid Use. Follow up: Private Physician; When: 2 - 3 days; Reason: Worsening of condition. Problem is new. Symptoms have improved. cp
--- NOTE | 2019-12-27 23:01 | ER ---
Nurse's Notes [facility] Name: Cora Mireles Age: 49 yrs Sex: Female : 1970 Arrival Date: 12/27/2019 Time: 21:37 Bed 14 Private MD: Diagnosis: Pain in right knee;Pain in right leg Presentation: 12/26 21:44 Chief complaint: Patient states: I tripped and fell while walking today, Im concerned sg because there was swelling and I have osteoporosis since having gastric bypass surgery, reports pain to the right knee, denies LOC denies any other trauma or injury at this time. Coronavirus screen: Patient denies a cough. Patient denies shortness of breath or difficulty breathing. Patient denies measured and/or subjective temperature greater than 100.4F prior to today's visit. Patient denies travel on a cruise ship or to a country the [facility] currently lists as an affected area. Patient denies contact with known and/or suspected case of COVID-19. Ebola Screen: Patient negative for fever greater than or equal to 101.5 degrees Fahrenheit, and additional compatible Ebola Virus Disease symptoms Patient denies exposure to infectious person. Patient denies travel to an Ebola-affected area in the 21 days before illness onset. No symptoms or risks identified at this time. Initial Sepsis Screen: Does the patient meet any 2 criteria? No. Patient's initial sepsis screen is negative. Does the patient have a suspected source of infection? No. Patient's initial sepsis screen is negative. Risk Assessment: Do you want to hurt yourself or someone else? Patient reports no desire to harm self or others. Onset of symptoms was December 27, 2019. Care prior to arrival: None. Transition of care: patient was not received from another setting of care. 21:44 Method Of Arrival: Ambulatory sg 21:44 Acuity: STEPHEN 4 sg 21:47 Note pt reports knee is most comfortable in a flexed position, more painful when kept sg straight. 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 - Social history:: Smoking status: Patient denies any tobacco usage or history of. Assessment: 22:00 General: Appears in no apparent distress. uncomfortable, Behavior is calm, cooperative, jb4 appropriate for age. Pain: Complains of pain in right knee Pain radiates to right quadriceps Pain currently is 10 out of 10 on a pain scale. Quality of pain is described as stabbing. Neuro: Level of Consciousness is awake, alert, obeys commands, Oriented to person, place, time, situation. Cardiovascular: Patient's skin is warm and dry. Respiratory: Airway is patent Respiratory effort is even, unlabored, Respiratory pattern is regular, symmetrical. GI: No signs and/or symptoms were reported involving the gastrointestinal system. : No signs and/or symptoms were reported regarding the genitourinary system. EENT: No signs and/or symptoms were reported regarding the EENT system. Derm: Skin is intact, Skin is pink, warm \\T\\ dry. Musculoskeletal: Circulation, motion, and sensation intact. Range of motion: intact in all extremities. 22:50 Reassessment: Patient appears in no apparent distress at this time. Patient and/or jb4 family updated on plan of care and expected duration. Pain level reassessed. Patient is alert, oriented x 3, equal unlabored respirations, skin warm/dry/pink. Pt reports being unable to stand due to the pain. 23:00 Reassessment: PT is standing with steady gait, asking about x-ray results. Provider at jb4 the bedside. Pt states " I wasn't given anything for pain" informed the patient that the Ultram that was given was for her pain. Pt states " Yea. an Ultram.". Vital Signs: 21:44 BP 142 / 70; Pulse 88; Resp 16; Pulse Ox 100% on R/A; Height 8 ft. (243.84 cm); sg ED Course: 21:37 Patient arrived in ED. ag3 21:45 Triage completed. sg 21:46 Mark Berumen PA is PHCP. cp 21:46 Tiburcio Mcginnis MD is Attending Physician. cp 21:47 Arm band placed on. sg 21:52 Perry Sanchez, RN is Primary Nurse. jb4 22:31 XRAY Femur RIGHT In Process Unspecified. EDMS 22:31 XRAY Tib Fib RIGHT In Process Unspecified. EDMS 23:36 No provider procedures requiring assistance completed. Patient did not have IV access mt2 during this emergency room visit. Administered Medications: 22:12 Drug: UltRAM 50 mg {Note: Rass score 0.} Route: PO; jb4 23:37 Follow up: Response: No adverse reaction jb4 Outcome: 23:01 Discharge ordered by . alie 23:36 Discharged to home with crutches. mt2 23:36 Condition: good 23:36 Discharge instructions given to patient, Instructed on discharge instructions, follow up and referral plans. medication usage, crutch walking, Demonstrated understanding of instructions, follow-up care, medications, crutch walking. 23:37 Patient left the ED. mt2 Signatures: Dispatcher [employer] EDChon Lorenz, RN RN Mark Berumen PA PA Perry Kearns, RN RN jb4 Sailaja Price [facility] Sandy Richards RN RN mt2
--- NOTE | 2019-12-28 08:09 | RAD REPORT ---
EXAM DESCRIPTION: RAD - Femur Right - 12/27/2019 10:31 pm CLINICAL HISTORY: Right leg pain FINDINGS: No fracture is seen.
--- NOTE | 2019-12-28 08:11 | RAD REPORT ---
EXAM DESCRIPTION: RAD - Tib Fib Right - 12/27/2019 10:31 pm CLINICAL HISTORY: Right leg pain FINDINGS: No fracture is seen. Osteoporosis
== END 2019-12-27 23:37 | disposition home or self-care (01) ==
LOC: ER 21:35
DX: M25.561 Pain in right knee (principal); Z98.84 Bariatric surgery status; Z88.6 Allergy status to analgesic agent
CPT/HCPCS: 99283

== ENCOUNTER 2020-02-01 14:11 | Emergency (ER) | payer SELFPAY ==
--- OUTSIDE RECORDS SUMMARY | 2020-02-01 14:13 | XMS REPORT | Continuity of Care Document ---
:1970 Author Organization [facility] t Address [address] [place] [address] Care Team Providers Name Role Phone Lab, Navin Pob I Attending Clinician Unavailable Problems This patient has no known problems. Allergies, Adverse Reactions, Alerts This patient has no known allergies or adverse reactions. Medications This patient has no known medications. Procedures This patient has no known procedures. Encounters Start End Encounter Admission Attending Care Care Encounter Source Date/Time Date/Time Type Type Clinicians Facility Department ID 2019-12-14 2019-12-14 Laboratory Lab, Adc [facility] [id number] 07:35:08 07:46:48 Only Fam Pob I [facility] [id number] [place] [id number] [facility] [phone] nal 044 [address] One Results This patient has no known results.
[2020-02-01] MEDS ORDERED: LIDOCAINE 1% MPF 30 ML VIAL ONE (14:54)
--- NOTE | 2020-02-01 16:16 | ER ---
Nurse's Notes [facility] Name: Cora Mireles Age: 50 yrs Sex: Female : 1970 Arrival Date: 02/01/2020 Time: 14:14 Bed 17 Private MD: Siva Reyes R Diagnosis: Laceration without foreign body of left hand Presentation: 01/31 14:24 Chief complaint: Patient states: Accidentally cut left hand webbing (between 1st and ll1 2nd digit) with knife 30 min SEAM SEWER. Bleeding controlled. Coronavirus screen: Client denies travel out of the [place] in the last 14 days. At this time, the client does not indicate any symptoms associated with coronavirus-19. Ebola Screen: Patient denies travel to an Ebola-affected area in the 21 days before illness onset. Complicating Factors: There are no complicating factors for this patient. Initial Sepsis Screen: Does the patient meet any 2 criteria? No. Patient's initial sepsis screen is negative. Risk Assessment: Do you want to hurt yourself or someone else? Patient reports no desire to harm self or others. Onset of symptoms was February 01, 2020. 14:24 Method Of Arrival: Ambulatory ll1 14:24 Acuity: STEPHEN 4 ll1 Historical: - Allergies: 14:26 NSAIDS; ll1 - PMHx: 14:26 Crohn's; Osteoporosis; RLS; ll1 - PSHx: 14:26 Gastric Bypass; Cholecystectomy; Hysterectomy; ll1 - Immunization history:: Last tetanus immunization: unknown. - Social history:: Smoking status: Patient reports the use of cigarette tobacco products, smokes one pack cigarettes per day. Patient/guardian denies using street drugs. Screenin:30 Abuse screen: Denies threats or abuse. Denies injuries from another. Nutritional jr10 screening: No deficits noted. Tuberculosis screening: No symptoms or risk factors identified. Fall Risk None identified. Assessment: 14:30 General: Appears in no apparent distress. Behavior is calm, cooperative, appropriate jr10 for age. Pain: Complains of pain in lateral aspect of left hand and Left first web space. Musculoskeletal: No deficits noted. No signs and/or symptoms reported regarding the musculoskeletal system. Circulation, motion, and sensation intact. Capillary refill < 3 seconds, Range of motion: intact in all extremities, Swelling absent. Injury Description: Laceration sustained to Left first web space is clean, 0.5 to 2.5 cm long, not bleeding, was sustained 30-60 minutes ago. is bleeding no active bleeding noted. Vital Signs: 14:24 BP 107 / 85; Pulse 79; Resp 18; Temp 98.2; Pulse Ox 100% ; Pain 5/10; ll1 16:30 BP 110 / 85; Pulse 78; Resp 18; Pulse Ox 100% on R/A; jr10 ED Course: 14:14 Patient arrived in ED. mr 14:14 Siva Reyes MD is Private Physician. mr 14:25 Triage completed. ll1 14:26 Arm band placed on Patient placed in an exam room, on a stretcher. ll1 14:30 Patient has correct armband on for positive identification. Bed in low position. Call jr10 light in reach. Side rails up X2. 14:38 Luci Fox, RN is Primary Nurse. jr10 15:00 No provider procedures requiring assistance completed. Patient did not have IV access jr10 during this emergency room visit. 15:01 Mark Berumen PA is PHCP. cp 15:01 Clint Barriga MD is Attending Physician. cp 15:30 Irrigation of laceration on lateral aspect of left hand irrigated with normal saline jr10 Betadine solution Patient tolerated well. 16:26 Velcro wrist splint applied to left wrist. jp3 16:26 Wound care: to laceration located on Left first web space was cleaned with Hibiclens, jp3 irrigated with normal saline, dressed with band aid, Patient tolerated well. 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 Exp: jr10 07/30/2022. Lot #: [id number]. } Route: IM; Site: right deltoid; 16:38 Follow up: Response: No adverse reaction jr10 Outcome: 16:15 Discharge ordered by . cp 16:39 Discharged to home ambulatory. jr10 16:39 Condition: good 16:39 Discharge instructions given to patient, Instructed on discharge instructions, follow up and referral plans. Demonstrated understanding of instructions, follow-up care. 16:39 Patient left the ED. jr10 Signatures: Amirah Fox Corey, PA PA cp Pisarski, Jacob jp3 Greg Jefferson RN RN ll1 Luci Fox RN RN jr10
--- NOTE | 2020-02-01 16:16 | EDPHYS ---
Physician Documentation [facility] Name: Cora Mireles Age: 50 yrs Sex: Female : 1970 Arrival Date: 02/01/2020 Time: 14:14 Bed 17 Private MD: Siva Reyes R ED Physician Clint Barriga HPI: 01/31 15:10 This 50 yrs old Female presents to ER via Ambulatory with complaints of cp Laceration To Hand. 15:10 The patient has a laceration related to: cooking, from a knife, occurred at home. cp 15:10 The laceration(s) is(are) located on the web space of left thumb and left index finger. cp Onset: The symptoms/episode began/occurred just prior to arrival. Associated signs and symptoms: Pertinent positives: numbness medial aspect left thumb, Pertinent negatives: heavy bleeding, suspected foreign body. Historical: - Allergies: 14:26 NSAIDS; ll1 - PMHx: 14:26 Crohn's; Osteoporosis; RLS; ll1 - PSHx: 14:26 Gastric Bypass; Cholecystectomy; Hysterectomy; ll1 - Immunization history:: Last tetanus immunization: unknown. - Social history:: Smoking status: Patient reports the use of cigarette tobacco products, smokes one pack cigarettes per day. Patient/guardian denies using street drugs. ROS: 15:15 Skin: Positive for laceration(s), of the web space of left thumb and left index finger. cp 15:15 Constitutional: Negative for chills, fever. cp 15:15 MS/extremity: Positive for paresthesias, of the left thumb, Negative for decreased range of motion, deformity. 15:15 All other systems are negative. Exam: 15:20 Constitutional: The patient appears in no acute distress, alert, awake, well developed, cp well nourished. 15:20 Musculoskeletal/extremity: ROM: full active range of motion, in the left hand, cp Perfusion: the extremity is normally perfused throughout, decreased sensation, Tendon exam: specific tendon testing normal through active and passive range of motion 15:20 Skin: cellulitis, is not appreciated, injury, laceration(s), the wound is approximately 2 cm(s), of the web space of left thumb and left index finger, that can be described as clean, linear, without bleeding. Vital Signs: 14:24 BP 107 / 85; Pulse 79; Resp 18; Temp 98.2; Pulse Ox 100% ; Pain 5/10; ll1 16:30 BP 110 / 85; Pulse 78; Resp 18; Pulse Ox 100% on R/A; jr10 Laceration: 16:13 Wound Repair of 2cm ( 0.8in ) subcutaneous laceration to web space of left thumb and cp left index finger. Linear shaped.. Distal neuro/vascular/tendon intact. Anesthesia: Wound infiltrated with 4 mls of 1% lidocaine. Wound prep: Moderate cleansing by nurse, Wound irrigation by me. Skin closed with 3 4-0 Prolene using simple sutures and sterile technique. Dressed with Bacitracin, 4x4's. Patient tolerated well. MDM: 15:05 Patient medically screened. cp 16:14 Data reviewed: vital signs, nurses notes, and as a result, I will discharge patient. cp 01/31 15:06 Order name: Dressing - Wound; Complete Time: 16:07 01/31 15:06 Order name: Gloves, Sterile; Complete Time: 15:30 cp 01/31 15:06 Order name: Setup Suture Tray; Complete Time: 15:07 cp 01/31 15:06 Order name: Wound Care: please clean and irrigate wound; Complete Time: 15:30 cp 01/31 16:13 Order name: Splint: wrist thumb spica splint; Complete Time: 16:27 cp 01/31 16:13 Order name: Wound dressing; Complete Time: 16:27 cp Administered Medications: 16:06 Drug: Lidocaine-Epinephrine -1%: (1:100,000) 10 ml {Note: administered via michelle French for lac repair.} Volume: 20 ml; Route: Infiltration; 16:38 Follow up: Response: No adverse reaction [facility] 16:16 Drug: Tetanus-Diphtheria Toxoid Adult 0.5 ml {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 Exp: jr10 07/30/2022. Lot #: [id number]. } Route: IM; Site: right deltoid; 16:38 Follow up: Response: No adverse reaction jr10 Disposition: 16:30 Chart complete. Disposition: 02/01/20 16:15 Discharged to Home. Impression: Laceration without foreign body of left hand. - Condition is Stable. - Discharge Instructions: Laceration Care, Adult, Sutured Wound Care. - Medication Reconciliation Form, Thank You Letter, Antibiotic Education, Prescription Opioid Use form. - Follow up: Private Physician; When: 7 - 10 days; Reason: Staple/Suture removal. - Problem is new. - Symptoms have improved. Addendum: 02/02/2020 19:48 Co-signature as Attending Physician, Clint Barriga MD I agree with the assessment and k dr plan of care. Signatures: Clint Barriga MD MD [facility] Mark Berumen PA PA Greg Zambrano, RN RN ll1 Luci Fox RN RN jr10 Corrections: (The following items were deleted from the chart) 01/31 16:39 16:15 02/01/2020 16:15 Discharged to Home. Impression: Laceration without foreign body jr10 of left hand. Condition is Stable. Forms are Medication Reconciliation Form, Thank You Letter, Antibiotic Education, Prescription Opioid Use. Follow up: Private Physician; When: 7 - 10 days; Reason: Staple/Suture removal. Problem is new. Symptoms have improved. cp 22:02 22:00 Skin: Positive for laceration(s), of the web space of left thumb and left index cp finger, cp
[2020-02-01] MEDS ORDERED: TETANUS & DIPHTHERIA TOX,ADULT 0.5 ML VIAL ONE (16:21)
[2020-02-06 01:12] VITALS: TEMP 98.2; O2SAT 100
[2020-02-06 01:13] VITALS: BP 110/85
== END 2020-02-01 16:39 | disposition home or self-care (01) ==
LOC: ER 14:11
PROC: 0JQK0ZZ Repair Left Hand Subcutaneous Tissue and Fascia, Open Approach (ICD-10-PCS; principal; 2020-02-01)
DX: S61.412A Laceration without foreign body of left hand, initial encounter (principal); W26.0XXA Contact with knife, initial encounter; Y93.G3 Activity, cooking and baking; Y92.009 Unspecified place in unspecified non-institutional (private) residence as the place of occurrence of the external cause; Z23 Encounter for immunization; Z98.84 Bariatric surgery status; Z88.6 Allergy status to analgesic agent; F17.210 Nicotine dependence, cigarettes, uncomplicated
CPT/HCPCS: 90471; 90714; 99284

== ENCOUNTER 2022-07-30 20:38 | Emergency (ER) | payer SELFPAY ==
[2022-07-30] MEDS ORDERED: NA CHLORIDE 0.9% 1,000 ML ONE (21:25)
[2022-07-30] MEDS ORDERED: MORPHINE 4 MG/ML SYR ONE ×2 (21:25→23:14)
[2022-07-30] MEDS ORDERED: ONDANSETRON 4 MG/2 ML VIAL ONE ×2 (21:25→23:16)
[2022-07-30 22:07] LABS: Absolute Lymphocytes (CBC) 2.9 K/uL (0.7-4.9); Lymphocytes % 44.2 % (15.3-44.8); MCV 71.9 fL (80-100); MPV 8.8 fL (7.6-11.3)
[2022-07-30 22:11] LABS: Albumin 3.5 g/dL (3.4-5.0); Bilirubin Total 0.3 mg/dL (0.2-1.0); Potassium 3.7 mmol/L (3.5-5.1); Protein, Total 8.1 g/dL (6.4-8.2)
[2022-07-30 22:35] LABS: Anisocytosis 1+; Blood Morphology Comment NOTED (NOT SEEN); Hypochromasia 2+; Platelet Estimate ADEQ; White Blood Cell Scan OK (OK)
--- NOTE | 2022-07-31 00:48 | ER ---
Nurse's Notes [facility] Name: Cora Mireles Age: 52 yrs Sex: Female : 1970 Arrival Date: 07/30/2022 Time: 20:40 Bed 28 Private MD: Diagnosis: Abdominal pain, unspecified Presentation: 07/30 21:07 Chief complaint: Patient states: "I have really bad Crohns and I started having as6 diarrhea and it looks like coffee grounds". Coronavirus screen: At this time, the client does not indicate any symptoms associated with coronavirus-19. Ebola Screen: No symptoms or risks identified at this time. Initial Sepsis Screen: Does the patient meet any 2 criteria? HR > 90 bpm. Does the patient have a suspected source of infection? No. Patient's initial sepsis screen is negative. Risk Assessment: Do you want to hurt yourself or someone else? Patient reports no desire to harm self or others. Onset of symptoms was July 28, 2022. 21:07 Method Of Arrival: Ambulatory as6 21:07 Acuity: STEPHEN 2 as6 Triage Assessment: 21:44 General: Appears uncomfortable, slender, Behavior is cooperative. Pain: Complains of as6 pain in abdomen. GI: Reports lower abdominal pain, upper abdominal pain, diarrhea, nausea, vomiting. Historical: - Allergies: 21:09 NSAIDS; as6 - PMHx: 21:09 Crohn's; Osteoporosis; RLS; as6 - PSHx: 21:09 gastric bypass; Cholecystectomy; Appendectomy; as6 - Immunization history:: Client reports having NOT received the Covid vaccine. - Social history:: Smoking status: Patient reports the use of cigarette tobacco products, smokes one-half pack cigarettes per day. - Family history:: not pertinent. Screenin:40 [facility] ED Fall Risk Assessment (Adult) History of falling in the last 3 months, bb including since admission No falls in past 3 months (0 pts) Score/Fall Risk Level 0 - 2 = Low Risk Oriented to surroundings, Maintained a safe environment. Abuse screen: Denies threats or abuse. Nutritional screening: No deficits noted. Tuberculosis screening: No symptoms or risk factors identified. Assessment: 22:40 General: Appears in no apparent distress. slender, Behavior is calm, cooperative, bb Reports "I was given pain medication and nausea medication in the lobby and I am feeling better now.". Neuro: Level of Consciousness is awake, alert, obeys commands, Oriented to person, place, time, situation. Cardiovascular: Capillary refill < 3 seconds Patient's skin is warm and dry. Respiratory: Respiratory effort is even, unlabored. GI: Abdomen is non-distended, Reports lower abdominal pain, upper abdominal pain. Derm: Skin is pink, warm \\T\\ dry. Musculoskeletal: Circulation, motion, and sensation intact. 23:13 Reassessment: Patient is alert, oriented x 3, equal unlabored respirations, skin bb warm/dry/pink. pt crying states pain is getting worse after CT scan Dr Bond notified new orders received pt medicated see AUG. Vital Signs: 21:07 BP 124 / 96; Pulse 115; Resp 18 S; Temp 99.0(TE); Pulse Ox 98% on R/A; Weight 62.14 kg as6 (R); Height 5 ft. 4 in. (162.56 cm) (R); Pain 9/10; 22:40 BP 102 / 67; Pulse 89; Resp 20; Temp 97.8; Pulse Ox 100% on R/A; mw2 21:07 Body Mass Index 23.52 (62.14 kg, 162.56 cm) as6 ED Course: 20:40 Patient arrived in ED. rg4 20:41 Erick Bond MD is Attending Physician. rt 21:09 Triage completed. as6 21:10 Arm band placed on. as6 21:45 Inserted saline lock: 20 gauge in right forearm, using aseptic technique. Blood as6 collected. 22:40 Patient has correct armband on for positive identification. Bed in low position. Call bb light in reach. 23:02 Nellie Delgado, RN is Primary Nurse. bb 07/31 00:56 No provider procedures requiring assistance completed. IV discontinued, intact, ll3 bleeding controlled, No redness/swelling at site. Pressure dressing applied. Administered Medications: 07/30 21:45 Drug: NS 0.9% 1000 ml Route: IV; Rate: 1 bolus; Site: right forearm; as6 23:07 Follow up: IV Status: Completed infusion; IV Intake: 950ml bb 21:45 Drug: morphine 4 mg Route: IVP; Infused Over: 4 mins; Site: right forearm; as6 22:40 Follow up: Response: Marked relief of symptoms bb 21:45 Drug: Zofran (Ondansetron) 4 mg Route: IVP; Site: right forearm; as6 22:40 Follow up: Response: No adverse reaction bb 23:14 Drug: morphine 4 mg Route: IVP; Infused Over: 4 mins; Site: right antecubital; bb 07/31 00:57 Follow up: Response: No adverse reaction; Marked relief of symptoms ll3 07/30 23:14 Drug: Zofran (Ondansetron) 4 mg Route: IVP; Site: right antecubital; bb 07/31 00:57 Follow up: Response: No adverse reaction; Marked relief of symptoms ll3 Medication: 07/30 22:40 VIS not applicable for this client. bb Intake: 23:07 IV: 950ml; Total: 950ml. bb Outcome: 07/31 00:48 Discharge ordered by . rt 00:56 Discharged to home ambulatory. ll3 00:56 Condition: stable 00:56 Discharge instructions given to patient, family, Instructed on discharge instructions, follow up and referral plans. medication usage, Demonstrated understanding of instructions, follow-up care, medications, Prescriptions given X 3. 00:57 Patient left the ED. ll3 Signatures: Nellie Delgado RN RN Laurie Kwan 4 Magdi Murrell 2 Devonte Navas RN RN as6 Ady Marroquin RN RN ll3 Erick Bond MD MD rt
--- NOTE | 2022-07-31 00:48 | EDPHYS ---
Physician Documentation [facility] Name: Cora Mireles Age: 52 yrs Sex: Female : 1970 Arrival Date: 07/30/2022 Time: 20:40 Bed 28 Private MD: ED Physician Erick Bond HPI: 07/31 02:09 This 52 yrs old Female presents to ER via Ambulatory with complaints of Crohns Flare Up.rt 02:09 The patient presents with abdominal pain that is diffuse. Onset: The symptoms/episode rt began/occurred 3 day(s) ago. 02:10 Patient presents to the ED with a generalized abdominal pain starting a few days ago. rt She reported diarrhea she stated it looked like coffee grounds she denies any hematemesis however or coffee-ground emesis. She denies any blood in her stool. The patient denies other acute complaints. Patient states that she has nausea and vomiting, states that the Phenergan is not adequately improved her symptoms. Symptoms are moderate severity, no other aggravating or alleviating factors.. Historical: - Allergies: 07/30 21:09 NSAIDS; as6 - PMHx: 21:09 Crohn's; Osteoporosis; RLS; as6 - PSHx: 21:09 gastric bypass; Cholecystectomy; Appendectomy; as6 - Immunization history:: Client reports having NOT received the Covid vaccine. - Social history:: Smoking status: Patient reports the use of cigarette tobacco products, smokes one-half pack cigarettes per day. - Family history:: not pertinent. ROS: 07/31 02:10 Constitutional: Negative for fever, chills, and weight loss, Cardiovascular: Negative rt for chest pain, palpitations, and edema, Respiratory: Negative for shortness of breath, cough, wheezing, and pleuritic chest pain, MS/Extremity: Negative for injury and deformity, Skin: Negative for injury, rash, and discoloration, Neuro: Negative for headache, weakness, numbness, tingling, and seizure, Psych: Negative for depression, anxiety, suicide ideation, homicidal ideation, and hallucinations. Abdomen/GI: Positive for abdominal pain, nausea and vomiting. Exam: 02:10 Constitutional: This is a well developed, well nourished patient who is awake, alert, rt and in no acute distress. Head/Face: Normocephalic, atraumatic. Chest/axilla: Normal chest wall appearance and motion. Nontender with no deformity. No lesions are appreciated. Cardiovascular: Regular rate and rhythm with a normal S1 and S2. No gallops, murmurs, or rubs. Normal PMI, no JVD. No pulse deficits. Respiratory: Lungs have equal breath sounds bilaterally, clear to auscultation and percussion. No rales, rhonchi or wheezes noted. No increased work of breathing, no retractions or nasal flaring. Skin: Warm, dry with normal turgor. Normal color with no rashes, no lesions, and no evidence of cellulitis. MS/ Extremity: Pulses equal, no cyanosis. Neurovascular intact. Full, normal range of motion. Neuro: Awake and alert, GCS 15, oriented to person, place, time, and situation. Cranial nerves II-XII grossly intact. Motor strength 5/5 in all extremities. Sensory grossly intact. Cerebellar exam normal. Normal gait. Psych: Awake, alert, with orientation to person, place and time. Behavior, mood, and affect are within normal limits. 02:10 Abdomen/GI: Tenderness diffusely without rebound, guarding, distention. Vital Signs: 07/30 21:07 BP 124 / 96; Pulse 115; Resp 18 S; Temp 99.0(TE); Pulse Ox 98% on R/A; Weight 62.14 kg as6 (R); Height 5 ft. 4 in. (162.56 cm) (R); Pain 9/10; 22:40 BP 102 / 67; Pulse 89; Resp 20; Temp 97.8; Pulse Ox 100% on R/A; mw2 21:07 Body Mass Index 23.52 (62.14 kg, 162.56 cm) as6 MDM: 21:11 Patient medically screened. rt 07/31 02:10 Differential diagnosis: Crohn's flare, GI bleed, bowel obstruction. Data reviewed: rt vital signs, nurses notes, lab test result(s), EKG, radiologic studies. Consideration of Admission/Observation Escalation of care including admission/observation considered. I considered the following discharge prescriptions or medication management in the emergency department Medications were administered in the Emergency Department. See MAR. Care significantly affected by the following chronic conditions: Crohn's disease. Counseling: I had a detailed discussion with the patient and/or guardian regarding: the historical points, exam findings, and any diagnostic results supporting the discharge/admit diagnosis, lab results, radiology results, the need for outpatient follow up. Response to treatment: the patient's symptoms have markedly improved after treatment. ED course: Patient presents to the ED with abdominal pain. She reported coffee grounds in her stool, denies any coffee-ground emesis. Her hemoglobin is at baseline without elevation of BUN, very low suspicion for a GI bleed. CT scan shows no acute inflammation or other acute findings on imaging, patient with significant symptomatic improvement with treatment in the ED, is stable for outpatient care, return precautions discussed.. 07/30 21:18 Order name: CBC with Diff rt 07/30 21:18 Order name: CMP rt 07/30 21:18 Order name: Lipase rt 07/30 22:09 Order name: CBC with Automated Diff; Complete Time: 22:38 EDMS 07/30 22:11 Order name: Comprehensive Metabolic Panel; Complete Time: 22:38 EDMS 07/30 22:11 Order name: Lipase; Complete Time: 22:38 EDMS 07/30 21:18 Order name: CT Abd/Pelvis - IV Contrast Only rt 07/30 22:36 Order name: CBC Smear Scan; Complete Time: 22:38 EDMS Administered Medications: 07/30 21:45 Drug: NS 0.9% 1000 ml Route: IV; Rate: 1 bolus; Site: right forearm; as6 23:07 Follow up: IV Status: Completed infusion; IV Intake: 950ml bb 21:45 Drug: morphine 4 mg Route: IVP; Infused Over: 4 mins; Site: right forearm; as6 22:40 Follow up: Response: Marked relief of symptoms bb 21:45 Drug: Zofran (Ondansetron) 4 mg Route: IVP; Site: right forearm; as6 22:40 Follow up: Response: No adverse reaction bb 23:14 Drug: morphine 4 mg Route: IVP; Infused Over: 4 mins; Site: right antecubital; bb 07/31 00:57 Follow up: Response: No adverse reaction; Marked relief of symptoms ll3 07/30 23:14 Drug: Zofran (Ondansetron) 4 mg Route: IVP; Site: right antecubital; bb 07/31 00:57 Follow up: Response: No adverse reaction; Marked relief of symptoms ll3 Disposition Summary: 07/31/22 00:48 Discharge Ordered Location: Home rt Problem: an acute exacerbation rt Symptoms: have improved rt Condition: Stable rt Diagnosis - Abdominal pain, unspecified rt Followup: rt - With: Private Physician - When: 2 - 3 days - Reason: Discharge Instructions: - Discharge Summary Sheet rt - Abdominal Pain, Adult rt Forms: - Medication Reconciliation Form rt - Thank You Letter rt - Antibiotic Education rt - Prescription Opioid Use rt Prescriptions: - Prednisone 20 mg Oral Tablet - take 1 tablet by ORAL route once daily As needed; 10 tablet; Refills: 0, rt Product Selection Permitted - Tylenol-Codeine #3 300 mg-30 mg Oral - take 1 tablet by ORAL route every 6 hours; 6 tablet; Refills: 0, Product rt Selection Permitted - ondansetron 4 mg Oral - take 4 milligrams by SUBLINGUAL route every 6 hours; 21 tablet; Refills: 0, rt Product Selection Permitted Signatures: Dispatcher [employer] Nellie Covarrubias RN RN bb Slawson, Ashby, RN RN as6 Erick Bond MD MD rt Ady Marroquin RN ll3
[2022-07-31 02:18] VITALS: BP 102/67; TEMP 97.8; O2SAT 100
--- NOTE | 2022-07-31 15:13 | RAD REPORT ---
EXAM DESCRIPTION: CT Abdomen and Pelvis With Intravenous Contrast CLINICAL HISTORY: The patient is 52 years old and is Female; ABD PAIN TECHNIQUE: Axial computed tomography images of the abdomen and pelvis with intravenous contrast. S agittal and coronal reformatted images were created and reviewed. This CT exam was performed using one or more of the following dose reduction techniques: automated exposure control, adjustment of t he mA and/or kV according to patient size, and/or use of iterative reconstruction technique. DLP: 930 mGy*cm COMPARISON: CT abdomen and pelvis dated 04/07/2019. FINDINGS: LUNG BASES: Unremarkable. No mass. No consolidation. ABDOMEN: LIVER: Unremarkable. No mass. GALLBLADDER AND BILE DUCTS: Prior cholecystectomy with advanced biliary ductal dilatation. PANCREAS: Unremarkable. No mass. No ductal dilation. SPLEEN: Unremarkable. No splenomegaly. ADRENALS: Unremarkable. No mass. KIDNEYS AND URETERS: Unremarkable. No solid mass. No hydronephrosis. STOMACH AND BOWEL: Prior Hermelinda-en-Y gastroplasty. No obstruction. No mucosal thickening. PELVIS: APPENDIX: No findings to suggest acute appendicitis. BLADDER: Unremarkable. No mass. REPRODUCTIVE: Prior hysterectomy. ABDOMEN and PELVIS: INTRAPERITONEAL SPACE: Unremarkable. No free air. No significant fluid collection. BONES/JOINTS: Lumbar levoscoliosis. No acute fracture. No dislocation. SOFT TISSUES: Unremarkable. VASCULATURE: Unremarkable. No abdominal aortic aneurysm. LYMPH NODES: Unremarkable. No enlarged lymph nodes. IMPRESSION: 1. No acute abdominal or pelvic abnormality. 2. Prior Hermelinda-en-Y gastroplasty. No obstruction. 3. Prior cholecystectomy with advanced biliary ductal dilatation. Electronically signed by: Bony Rodarte DO 07/30/2022 11:10 PM SIX PACK PACKER Due to temporary technical issues with the PACS/Fluency reporting system, reports are being signed by the in house radiologists without review as a courtesy to insure prompt reporting. The interpreting radiologist is fully responsible for the content of the report.
== END 2022-07-31 00:57 | disposition home or self-care (01) ==
LOC: ER 20:38
DX: R10.84 Generalized abdominal pain (principal); F17.210 Nicotine dependence, cigarettes, uncomplicated
CPT/HCPCS: 36415; 74177; 80053; 83690; 85025; 99284; J2405; J7030; Q9967

== ENCOUNTER 2022-11-15 17:08 | Emergency (ER) | payer SELFPAY ==
--- OUTSIDE RECORDS SUMMARY | 2022-11-15 17:11 | XMS REPORT | Continuity of Care Document ---
:1970 Author Organization [facility] t Address [address] [facility]. [address] [place] [address] Care Team Providers Name Role Phone MARY DAVID Attending Clinician Unavailable Lab, [facility] Fam Pob I Attending Clinician Unavailable DAMEON SIERRA Attending Clinician Unavailable Problems This patient has no known problems. Allergies, Adverse Reactions, Alerts Allergy Allergy Status Severity Reaction(s) Onset Inactive Treating Comm ents Source Name Type Date Date Clinician NSAIDS Drug Active Unknown-Cmnt Univ ers (NON-MICHELLE Class 7-23 ity of ROIDAL 00:00: [place] ANTI-INF [address] [place] [address] LAMAZ[facility] Y DRUG) NO KNOWN Drug Active [facility] ALLERGIE Class ity of [facility] Medications This patient has no known medications. Procedures This patient has no known procedures. Encounters Start End Encounter Admission Attending Care Care Encounter Source Date/Time Date/Time Type Type Clinicians Facility Department ID 2019-12-31 2019-12-31 Outpatient Jenna DAVID [facility] [id number] Univers 15:15:00 15:15:00 MARY marrufo [facility] 2019-12-14 2019-12-14 Laboratory Lab, [facility] [id number] 07:35:08 07:46:48 Only Fam Pob I Health [id number] [place] [id number] [facility] [id number] nal [address] 2019-12-14 2019-12-14 Outpatient Jenna SIERRA [facility] [id number] Univers 07:40:00 07:40:00 DAMEON marrufo [facility] Results This patient has no known results.
[2022-11-15] MEDS ORDERED: MORPHINE 4 MG/ML SYR ONE (18:42)
--- NOTE | 2022-11-15 19:07 | ER ---
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 ll1 Coronavirus screen: Vaccine status: Patient reports being unvaccinated. Client denies travel out of the [place] in the last 14 days. At this time, the client does not indicate any symptoms associated with coronavirus-19. Ebola Screen: Patient denies travel to an Ebola-affected area in the 21 days before illness onset. Initial Sepsis Screen: Does the patient meet any 2 criteria? No. Patient's initial sepsis screen is negative. Does the patient have a suspected source of infection? Yes: Skin breakdown/wound. Risk Assessment: Do you want to hurt yourself or someone else? Patient reports no desire to harm self or others. Onset of symptoms was November 15, 2022. 17:20 Method Of Arrival: Ambulatory ll1 17:20 Acuity: STEPHEN 3 ll1 Triage Assessment: 17:24 General: Appears uncomfortable, Behavior is calm, cooperative, appropriate for age. ll1 Pain: Complains of pain in right hand Quality of pain is described as aching. Derm: abrasion 4 th digit. Musculoskeletal: Circulation, motion, and sensation intact. Capillary refill < 3 seconds. Injury Description: Crush injury. Historical: - Allergies: 17:21 NSAIDS; ll1 - PMHx: 17:21 Crohn's; Osteoporosis; RLS; ll1 - PSHx: 17:21 Appendectomy; Cholecystectomy; Gastric Bypass; ll1 - Immunization history:: Client reports having NOT received the Covid vaccine. - Social history:: Smoking status: Patient reports the use of cigarette tobacco products, smokes one pack cigarettes per day. Screenin:[facility] ED Fall Risk Assessment (Adult) History of falling in the last 3 months, iw including since admission. Abuse screen: Denies threats or abuse. Denies injuries from another. Nutritional screening: No deficits noted. Tuberculosis screening: No symptoms or risk factors identified. Assessment: 18:48 Reassessment: Patient appears in no apparent distress at this time. No changes from iw previously documented assessment. Patient and/or family updated on plan of care and expected duration. Pain level reassessed. Vital Signs: 17:20 BP 110 / 74; Pulse 95; Resp 16; Temp 98.4; Pulse Ox 98% ; Weight 63.5 kg; Height 5 ft. ll1 7 in. ; Pain 9/10; 19:15 BP 111 / 65; Pulse 81; Resp 16; Pulse Ox 99% on R/A; Pain 4/10; pf1 17:20 Body Mass Index 21.93 (63.50 kg, 170.18 cm) ll1 17:20 Pain Scale: Adult ll1 19:15 Pain Scale: Adult pf1 ED Course: 17:09 Patient arrived in ED. rg4 17:15 Mark Berumen PA is PHCP. cp 17:15 Javier Wills DO is Attending Physician. cp 17:21 Triage completed. ll1 17:21 Arm band placed on Patient placed in an exam room, on a stretcher. ll1 17:37 Moni Randolph, RN is Primary Nurse. iw 18:51 Orthoglass splint: Volar splint applied on right arm. zm 19:01 Patient has correct armband on for positive identification. iw 19:01 No provider procedures requiring assistance completed. Patient did not have IV access iw during this emergency room visit. 19:05 XRAY Hand RIGHT 3 View In Process Unspecified. EDMS 19:05 XRAY Forearm RIGHT In Process Unspecified. EDMS Administered Medications: 17:43 Drug: Hydrocodone-Acetaminophen PO (7.5 mg-325 mg) 1 tabs Route: PO; iw 19:15 Follow up: Response: No adverse reaction; Marked relief of symptoms; Pain is decreased; pf1 RASS: Alert and Calm (0) 18:41 Drug: morphine IM 4 mg Route: IM; Site: left deltoid; iw 19:15 Follow up: Response: No adverse reaction; Marked relief of symptoms; Pain is decreased; pf1 RASS: Alert and Calm (0) Medication: 19:16 VIS not applicable for this client. pf1 Outcome: 19:07 Discharge ordered by MD. cp 19:16 Discharged to home ambulatory, with family. pf1 19:16 Condition: improved 19:16 Discharge instructions given to patient, Instructed on discharge instructions, follow up and referral plans. Demonstrated understanding of instructions, follow-up care, medications, Prescriptions given X 1. 19:16 Patient left the ED. pf1 Signatures: Dispatcher [employer] EDMoni Roman RN RN Mark Up PA PA cp Garcia, Rubi rg4 Greg Jefferson RN RN ll1 Tierney Iqbal Pamala, RN RN pf1
--- NOTE | 2022-11-15 19:07 | EDPHYS ---
Physician Documentation [facility] Name: Cora Mireles Age: 52 yrs Sex: Female : 1970 Arrival Date: 11/15/2022 Time: 17:08 Bed 9 Private MD: ED Physician Javier Wills HPI: 11/15 17:45 This 52 yrs old Female presents to ER via Ambulatory with complaints of Hand Injury. cp 17:45 The patient or guardian reports injury. The complaints affect the right hand diffusely. cp Context: resulted from a crush injury, by level vial grinder. Onset: The symptoms/episode began/occurred just prior to arrival. Associated signs and symptoms: Pertinent positives: right distal forearm and right wrist pain, Pertinent negatives: cyanosis distally, decreased sensation distally. 17:45 Severity of symptoms: in the emergency department the symptoms are unchanged, despite cp home interventions. Historical: - Allergies: 17:21 NSAIDS; ll1 - PMHx: 17:21 Crohn's; Osteoporosis; RLS; ll1 - PSHx: 17:21 Appendectomy; Cholecystectomy; Gastric Bypass; ll1 - Immunization history:: Client reports having NOT received the Covid vaccine. - Social history:: Smoking status: Patient reports the use of cigarette tobacco products, smokes one pack cigarettes per day. ROS: 17:50 Constitutional: Negative for body aches, chills, fever, poor PO intake. cp 17:50 Eyes: Negative for injury, pain, redness, and discharge. cp 17:50 ENT: Negative for drainage from ear(s), ear pain, sore throat, difficulty swallowing, difficulty handling secretions. 17:50 Cardiovascular: Negative for chest pain, palpitations. 17:50 Respiratory: Negative for cough, shortness of breath, wheezing. 17:50 Abdomen/GI: Negative for abdominal pain, nausea, vomiting, diarrhea. 17:50 MS/extremity: Positive for pain, swelling, tenderness, of the right hand and right wrist and distal right forearm, Negative for deformity, paresthesias. 17:50 Neuro: Negative for altered mental status, dizziness, headache, weakness. 17:50 All other systems are negative. Exam: 17:55 Constitutional: The patient appears in no acute distress, alert, awake, non-toxic, well cp developed, well nourished, in obvious pain, uncomfortable. 17:55 Head/Face: Normocephalic, atraumatic. cp 17:55 Neck: ROM/movement: is normal, is supple, without pain, no range of motions limitations. 17:55 Chest/axilla: Inspection: normal. 17:55 Cardiovascular: Rate: normal, Pulses: Pulses are 2+ in right radial artery. 17:55 Respiratory: the patient does not display signs of respiratory distress, Respirations: normal, no use of accessory muscles, no retractions. 17:55 Back: pain, is absent, ROM is normal. 17:55 Musculoskeletal/extremity: Extremities: noted in the right hand: pain, tenderness, There is no evidence of decreased ROM, deformity, noted in the right wrist and distal right forearm: pain, tenderness, no evidence of decreased ROM, deformity, ROM: limited passive range of motion due to pain, in the right hand and right wrist. Vital Signs: 17:20 BP 110 / 74; Pulse 95; Resp 16; Temp 98.4; Pulse Ox 98% ; Weight 63.5 kg; Height 5 ft. ll1 7 in. ; Pain 9/10; 19:15 BP 111 / 65; Pulse 81; Resp 16; Pulse Ox 99% on R/A; Pain 4/10; pf1 17:20 Body Mass Index 21.93 (63.50 kg, 170.18 cm) ll1 17:20 Pain Scale: Adult ll1 19:15 Pain Scale: Adult pf1 Procedures: 19:25 Splinting: Splint applied to right hand and right wrist and right forearm using Orthoglass volar wrist splint. applied by tech. Examined by me, post splint application: neurovascular intact, Patient tolerated well. MDM: 17:23 Patient medically screened. cp 18:27 Independent interpretation of the following test(s) in the Emergency Department X-Ray: cp My interpretation is right hand images negative for fracture, images right forearm negative for fracture. 19:06 Data reviewed: vital signs, nurses notes, radiologic studies, plain films. cp 19:06 Differential diagnosis: dislocation, closed fracture, contusion. I considered the cp following discharge prescriptions or medication management in the emergency department Medications were administered in the Emergency Department. See MAR. Counseling: I had a detailed discussion with the patient and/or guardian regarding: the historical points, exam findings, and any diagnostic results supporting the discharge/admit diagnosis, radiology results, to return to the emergency department if symptoms worsen or persist or if there are any questions or concerns that arise at home. Response to treatment: the patient's symptoms have markedly improved after treatment. 11/15 17:26 Order name: XRAY Hand RIGHT 3 View cp 11/15 17:26 Order name: XRAY Forearm RIGHT cp 11/15 18:21 Order name: Splint: volar hand/forearm splint; Complete Time: 18:51 cp Administered Medications: 17:43 Drug: Hydrocodone-Acetaminophen PO (7.5 mg-325 mg) 1 tabs Route: PO; iw 19:15 Follow up: Response: No adverse reaction; Marked relief of symptoms; Pain is decreased; pf1 RASS: Alert and Calm (0) 18:41 Drug: morphine IM 4 mg Route: IM; Site: left deltoid; iw 19:15 Follow up: Response: No adverse reaction; Marked relief of symptoms; Pain is decreased; pf1 RASS: Alert and Calm (0) Disposition: 19:49 Co-signature as Attending Physician, Javier Wills DO I was immediately available on-site ms3 in the Emergency Department for consultation in the care of the patient. Disposition Summary: 11/15/22 19:07 Discharge Ordered Location: Home cp Problem: new cp Symptoms: have improved cp Condition: Stable cp Diagnosis - Crushing injury of hand - right cp - Pain in right forearm cp Followup: cp - With: Private Physician - When: 5 - 6 days - Reason: Recheck today's complaints Discharge Instructions: - Discharge Summary Sheet cp Forms: - Medication Reconciliation Form cp - Thank You Letter cp - Antibiotic Education cp - Prescription Opioid Use cp Prescriptions: - acetaminophen-codeine 300-30 mg Oral tablet - take 2 tablet by ORAL route every 8 hours as needed for pain; 12 tablet; cp Refills: 0, Product Selection Permitted Signatures: Dispatcher [employer] Moni Girard RN RN iw Mark Berumen PA PA cp Lewis, Lynsay, RN RN ll1 Javier Wills DO DO ms3 Wendie Navarrete RN pf1
--- NOTE | 2022-11-15 19:14 | RAD REPORT ---
EXAM DESCRIPTION: RAD - Hand Right 3 View - 11/15/2022 7:03 pm CLINICAL HISTORY: PAIN COMPARISON: No comparisons FINDINGS: Soft tissue swelling is seen affecting the fourth finger. No acute fracture or dislocation seen. No aggressive marrow lesion.
--- NOTE | 2022-11-15 19:15 | RAD REPORT ---
EXAM DESCRIPTION: RAD - Forearm Right - 11/15/2022 7:04 pm CLINICAL HISTORY: PAIN COMPARISON: No comparisons FINDINGS: No acute fracture or dislocation.
[2022-11-15 20:08] VITALS: TEMP 98.4
[2022-11-15 20:10] VITALS: BP 111/65; O2SAT 99
== END 2022-11-15 19:16 | disposition home or self-care (01) ==
LOC: ER 17:08
DX: S67.21XA Crushing injury of right hand, initial encounter (principal)
CPT/HCPCS: 96372; 99284

== ENCOUNTER 2024-02-21 21:35 | Emergency (ER) | payer OTHER, SELFPAY ==
--- OUTSIDE RECORDS SUMMARY | 2024-02-21 21:38 | XMS REPORT | Continuity of Care Document ---
Author Name Unknown Address [address] [facility] [address] [place] [address] [facility] thconnect Address [address] [place] [address] Care Team Providers Care Clinical Admissions Manager Name Role Phone Pcp, Patient Does Not Have A Primary Care Physic grace MARY DAVID Attending Clinician Unavailabl e Doctor Unassigned, [place] Attending Clinician U navailable Lab, Adc Fam Pob I Attending Clinician Unavailab DAMEON Lao Attending Clinician Unavailable Allergies, Adverse Reactions, Alerts Allergy Name Allergy Type Status Severity Reaction(s) Onset Date Inactive Date Treating Clinician Comments Source Nsaids (Non-[place]rick roidal Anti-Inf lammator y Drug) Propensi ty to adverse reaction s Active Unknown - See comments 12-30 00:00: 00 Stomach pain [facility] NSAIDS (NON-[place] ANTI-INF LAMMATOR Y DRUG) Drug Class Active Unknown-Cmnt 12-30 00:00: 00 [facility] NO KNOWN ALLERGIE S Drug Class Active [facility] Social History Social Habit Start Date Stop Date Quantity Comments Source Sexual orientation U [facility] History of Social function 2019-12-31 00:00:00 2019-12-31 00:00:00 [facility] Exposure to SARS-CoV-2 (event) 2019-11-14 00:00:00 2019-12-14 07:35:00 Yes [facility] Sex Assigned At 1970 00:00:00 1970 00:00:00 [facility] Smoking Status Start Date Stop Date Source Tobacco smoking consumption unknown [facility] Encounters Start Date/Time End Date/Time Encounter Type Admission Type Attending Clinicians Care Facility Care Department Encounter ID Source 2019-12-31 15:15:00 2019-12-31 15:15:00 Outpatient MARY GERBER [facility] [id number] [facility] 2019-12-16 00:00:00 2019-12-16 00:00:00 Patient Secure Msg Doctor Unassigned, [place] [facility] [address] [id number] [facility] 2019-12-15 00:00:00 2019-12-15 00:00:00 Patient Secure Msg Doctor Unassigned, [place] [facility] [id number] [facility] 2019-12-14 07:35:08 2019-12-14 07:46:48 Laboratory Only Lab, Adc Fam Pob I [facility] [address] [id number] 2019-12-14 07:40:00 2019-12-14 07:40:00 Outpatient DAMEON THOMAS [facility] [id number] [facility]
[2024-02-21] MEDS ORDERED: HYDROCODONE/APAP 7.5/325 MG TAB ONE (22:35)
--- NOTE | 2024-02-21 23:50 | ER ---
Nurse's Notes [facility] Name: Cora Mireles Age: 54 yrs Sex: Female : 1970 Arrival Date: 02/21/2024 Time: 21:35 Bed 12 Private MD: Diagnosis: Fracture of one rib, left side Presentation: 02/20 22:03 Chief complaint: Patient states: Pt states was changing spark plugs in car and was dd2 leaning against the grill of the car, strained and felt a pop in left rib area. States this occurred Saturday. c/o of pain and unable to take a deep breath. Coronavirus screen: At this time, the client does not indicate any symptoms associated with coronavirus-19. Ebola Screen: No symptoms or risks identified at this time. Initial Sepsis Screen: Does the patient meet any 2 criteria? No. Patient's initial sepsis screen is negative. Does the patient have a suspected source of infection? No. Patient's initial sepsis screen is negative. Risk Assessment: Do you want to hurt yourself or someone else? Patient reports no desire to harm self or others. Onset of symptoms is unknown. 22:03 Method Of Arrival: Ambulatory dd2 22:03 Acuity: STEPHEN 3 dd2 Triage Assessment: 22:08 General: Appears in no apparent distress. Behavior is calm, cooperative, appropriate dd2 for age. Pain: Complains of pain in diaphragm and left breast. Pain: Pain: Pain currently is 9 out of 10 on a pain scale. 22:37 EENT: No deficits noted. Neuro: No deficits noted. Level of Consciousness is awake, dd2 alert, obeys commands, Oriented to person, place, time, situation, Appropriate for age. Cardiovascular: Patient's skin is warm and dry. Respiratory: No deficits noted. Reports pain with respiration Airway is patent Respiratory effort is even, unlabored, Respiratory pattern is regular, symmetrical. GI: No deficits noted. No signs and/or symptoms were reported involving the gastrointestinal system. : No deficits noted. No signs and/or symptoms were reported regarding the genitourinary system. Derm: No deficits noted. No signs and/or symptoms reported regarding the dermatologic system. Musculoskeletal: Tenderness present in chest and left breast. TRAINING DESIGNER: 22:08 LMP N/A - Post-menopause, Not dd2 Historical: - Allergies: 22:08 NSAIDS; dd2 22:08 Dilaudid; dd2 22:08 PENICILLINS; dd2 - PMHx: 22:08 Crohn's; Osteoporosis; RLS; dd2 - PSHx: 22:08 Gastric Bypass; Cholecystectomy; Appendectomy; dd2 - Immunization history:: Adult Immunizations up to date. - Infectious Disease History:: Denies. - Social history:: Smoking status: Patient reports the use of cigarette tobacco products, smokes one pack cigarettes per day. Screenin:39 [facility] ED Fall Risk Assessment (Adult) History of falling in the last 3 months, dd2 including since admission No falls in past 3 months (0 pts) Confusion or Disorientation No (0 pts) Intoxicated or Sedated No (0 pts) Impaired Gait No (0 pts) Mobility Assist Device Used No (0 pt) Altered Elimination No (0 pt) Score/Fall Risk Level 0 - 2 = Low Risk Oriented to surroundings, Maintained a safe environment, Hourly rounding (assess needs \T\ fall precautionary measures) done. Abuse screen: Denies threats or abuse. Nutritional screening: No deficits noted. Tuberculosis screening: No symptoms or risk factors identified. Assessment: 22:39 Reassessment: see triage assessment. dd2 02/21 00:24 Reassessment: Patient appears in no apparent distress at this time. Patient and/or vc1 family updated on plan of care and expected duration. Pain level reassessed. Patient states feeling better. Patient states symptoms have improved. Vital Signs: 02/20 22:03 BP 118 / 82; Pulse 82; Resp 17; Temp 98.5(O); Pulse Ox 100% ; Weight 63.05 kg; dd2 02/21 00:25 BP 114 / 78; Pulse 82; Resp 17; Temp 98.4; Pulse Ox 99% ; vc1 ED Course: 02/20 21:36 Patient arrived in ED. jj6 21:56 Mark Berumen PA is PHCP. cp 21:56 Juan Higginbotham MD is Attending Physician. cp 22:08 Triage completed. dd2 22:08 Arm band placed on left wrist. Patient notified of wait time. dd2 22:39 Patient has correct armband on for positive identification. Bed in low position. Call dd2 light in reach. Side rails up X 1. Provided Education on: call light, medication and procedures. Door closed. PO fluids given. Verbal reassurance given. 22:39 No provider procedures requiring assistance completed. Patient did not have IV access dd2 during this emergency room visit. 22:57 XRAY Ribs LEFT In Process Unspecified. EDMS 02/21 00:26 Gloria Birmingham, RN is Primary Nurse. vc1 Administered Medications: 02/20 22:36 Drug: Hydrocodone-Acetaminophen PO (7.5 mg-325 mg) 1 tabs PO once; RASS on ADMIN: dd2 Combtv4, Very Agttd3, Agttd2, Rstlss1, AlertClm0, Drwsy-1, Lt Sdtn-2, Mod Sdtn-3, Dp Sdtn-4, UnArsble-5 Route: PO; 23:06 Follow up: Response: No adverse reaction dd2 02/21 00:11 Follow up: Response: No adverse reaction; Marked relief of symptoms; Pain is decreased vc1 00:24 Drug: Methocarbamol PO 750 mg PO once Route: PO; vc1 00:26 Follow up: Response: Medication administered at discharge. vc1 Medication: 02/20 22:39 VIS not applicable for this client. dd2 Outcome: 23:49 Discharge ordered by . 02/21 00:25 Discharged to home ambulatory, with family, vc1 Condition: good Discharge instructions given to patient, Instructed on discharge instructions, follow up and referral plans. medication usage, Demonstrated understanding of instructions, follow-up care, medications, Prescriptions given X 2, 00:26 Patient left the ED. vc1 Signatures: Dispatcher [employer] EDIA Mark Berumen PA PA cp Jeffries, Jennifer jj6 Gloria Birmingham, RN RN vc1 NEVAEH HEMPHILL, RN RN dd2 Corrections: (The following items were deleted from the chart) 02/20 22:39 22:08 Pain: dd2 dd2
--- NOTE | 2024-02-21 23:50 | EDPHYS ---
Physician Documentation [facility] Name: Cora Mireles Age: 54 yrs Sex: Female : 1970 Arrival Date: 02/21/2024 Time: 21:35 Bed 12 Private MD: ED Physician Juan Higginbotham HPI: 02/20 22:20 This 54 yrs old Female presents to ER via Ambulatory with complaints of RIB PAIN. cp 22:20 The patient or guardian reports chest pain that is located primarily in the left rib cp area below breast. Onset: this past Saturday. Patient reports feeling "pop" and then having pain that started after straining to loosen spark plugs on car while leaning against grill of car. Patient with HX of osteoporosis. 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 - Infectious Disease History:: Denies. - Social history:: Smoking status: Patient reports the use of cigarette tobacco products, smokes one pack cigarettes per day. ROS: 22:25 MS/extremity: Positive for pain, of the left rib area below breast, cp 22:25 Eyes: Negative for injury, pain, redness, and discharge, cp 22:25 Constitutional: Negative for body aches, chills, fever, poor PO intake, 22:25 Respiratory: Negative for cough, shortness of breath, wheezing, 22:25 Abdomen/GI: Negative for abdominal pain, vomiting, diarrhea, constipation, 22:25 Skin: Negative for rash, 22:25 All other systems are negative, Exam: 22:30 Constitutional: The patient appears in no acute distress, alert, awake, cp non-diaphoretic, non-toxic, well developed, well nourished, uncomfortable, 22:30 Head/Face: Normocephalic, atraumatic. cp 22:30 Eyes: Periorbital structures: appear normal, Conjunctiva: normal, no exudate, no injection, Sclera: no appreciated abnormality, Lids and lashes: appear normal, bilaterally, 22:30 ENT: External ear(s): are unremarkable, Nose: is normal, Mouth: Lips: moist, Oral mucosa: pink and intact, moist, Posterior pharynx: Airway: no evidence of obstruction, patent, 22:30 Chest/axilla: Inspection: normal, Palpation: crepitus, is not appreciated, tenderness, that is moderate, of the left rib area below breast, 22:30 Cardiovascular: Rate: normal, Rhythm: regular, Edema: is not appreciated, JVD: is not appreciated, 22:30 Respiratory: the patient does not display signs of respiratory distress, Respirations: normal, no use of accessory muscles, no retractions, labored breathing, is not present, Breath sounds: are clear throughout, no decreased breath sounds, no stridor, no wheezing, 22:30 Abdomen/GI: Inspection: abdomen appears normal, Palpation: abdomen is soft and non-tender, in all quadrants, 22:30 Back: vertebral tenderness, is not appreciated, 22:30 Skin: no rash present. Vital Signs: 22:03 BP 118 / 82; Pulse 82; Resp 17; Temp 98.5(O); Pulse Ox 100% ; Weight 63.05 kg; dd2 02/21 00:25 BP 114 / 78; Pulse 82; Resp 17; Temp 98.4; Pulse Ox 99% ; vc1 MDM: 02/20 22:12 Patient medically screened. cp 23:48 Data reviewed: vital signs, nurses notes, radiologic studies, plain films, and as a cp result, I will discharge patient. 23:48 Differential diagnosis: pneumothorax, rib contusion, rib fracture. I considered the cp following discharge prescriptions or medication management in the emergency department Medications were administered in the Emergency Department. See MAR. Counseling: I had a detailed discussion with the patient and/or guardian regarding the historical points, exam findings, and any diagnostic results supporting the discharge/admit diagnosis, radiology results, the need for outpatient follow up, a family practitioner, to return to the emergency department if symptoms worsen or persist or if there are any questions or concerns that arise at home. Response to treatment: the patient's symptoms have markedly improved after treatment, and as a result, I will discharge patient. 02/20 22:13 Order name: XRAY Ribs LEFT cp 02/20 23:46 Order name: INCENTIVE SPIROMETRY cp Administered Medications: 22:36 Drug: Hydrocodone-Acetaminophen PO (7.5 mg-325 mg) 1 tabs PO once; RASS on ADMIN: dd2 Combtv4, Very Agttd3, Agttd2, Rstlss1, AlertClm0, Drwsy-1, Lt Sdtn-2, Mod Sdtn-3, Dp Sdtn-4, UnArsble-5 Route: PO; 23:06 Follow up: Response: No adverse reaction dd2 02/21 00:11 Follow up: Response: No adverse reaction; Marked relief of symptoms; Pain is decreased vc1 00:24 Drug: Methocarbamol PO 750 mg PO once Route: PO; vc1 00:26 Follow up: Response: Medication administered at discharge. vc1 Disposition: 18:29 Co-signature as Attending Physician, Juan Higginbotham MD I agree with the assessment sp4 and plan of care. I reviewed the patient's care provided by the Advanced Practice Provider and agree with the diagnosis and treatment plan. Disposition Summary: 02/21/24 23:49 Discharge Ordered Notes: Location: Home cp Problem: new cp Symptoms: have improved cp Condition: Stable cp Diagnosis - Fracture of one rib, left side cp Followup: cp - With: Private Physician - When: 2 - 3 days - Reason: Recheck today's complaints Discharge Instructions: - Discharge Summary Sheet cp - Rib Fracture cp - How to Use an Incentive Spirometer cp - Incentive Spirometer Record cp Forms: - Medication Reconciliation Form cp - Antibiotic Education cp - Prescription Opioid Use cp - Patient Portal Instructions cp - Leadership Thank You Letter cp Prescriptions: - Tramadol 50 mg Oral Tablet - take 1 tablet ORAL route every 8 hours as needed; 12 tablet; Refills: 0, cp Product Selection Permitted - methocarbamol 750 mg Oral tablet - take 1 tablet ORAL route 3 times per day; 30 tablet; Refills: 0, Product cp Selection Permitted Signatures: Dispatcher [employer] EDMS Mark Berumen PA PA cp Gloria Birmingham RN RN vc1 Juan Higginbotham MD MD sp4 NEVAEH HEMPHILL RN RN dd2 Corrections: (The following items were deleted from the chart) 02/20 22:14 22:14 Ribs Left+RAD.RAD.BRZ ordered. EDMS EDMS
[2024-02-22] MEDS ORDERED: methocarbamoL 750 MG TAB ONE (00:20)
[2024-02-22 00:53] VITALS: BP 114/78; TEMP 98.4; O2SAT 99
--- NOTE | 2024-02-24 10:12 | RAD REPORT ---
EXAM DESCRIPTION: RAD - Ribs Left - 02/21/2024 10:55 pm CLINICAL HISTORY: 4 years Female, PAIN COMPARISON: None IMPRESSION: No focal left lung consolidation. No left pleural effusion. No pneumothorax. Cardiomediastinal silhouette is within normal limits. Acute displaced left rib fracture. Electronically signed by: Bony Rodarte DO 02/21/2024 11:23 PM CDT RP 9 Due to temporary technical issues with the PACS/Fluency reporting system, reports are being signed by the in house radiologist without review as a courtesy to ensure prompt reporting. The interpreting r adiologist is fully responsible for the content of the report.
== END 2024-02-22 00:26 | disposition home or self-care (01) ==
LOC: ER 21:35
DX: S22.32XA Fracture of one rib, left side, initial encounter for closed fracture (principal); M81.0 Age-related osteoporosis without current pathological fracture; K50.90 Crohn's disease, unspecified, without complications; F17.210 Nicotine dependence, cigarettes, uncomplicated; G25.81 Restless legs syndrome; X50.1XXA Overexertion from prolonged static or awkward postures, initial encounter; Y93.89 Activity, other specified; Y92.9 Unspecified place or not applicable; Z88.0 Allergy status to penicillin; Z88.6 Allergy status to analgesic agent; Z88.5 Allergy status to narcotic agent
CPT/HCPCS: 99283

== ENCOUNTER 2024-10-04 19:49 | Emergency (ER) | payer OTHER, SELFPAY ==
--- NOTE | 2024-10-04 21:11 | EDPHYS ---
Physician Documentation [facility] Name: Cora Mireles Age: 54 yrs Sex: Female : 1970 Arrival Date: 10/04/2024 Time: 19:49 Bed IW7 Private MD: ED Physician Erick Bond HPI: 10/04 22:51 This 54 yrs old Female presents to ER via Ambulatory with complaints of Abscess, Facial rt Swelling. 22:51 Patient presents to the ED with a right lower dental pain, reported abscess for about a rt week, states that she has an appoint with a dentist in about a week's time. States that the abscess is drained, however, she has had continued swelling and pain to the right lower jaw margin. Denies difficulty swallowing. Denies other acute complaints, symptoms are mild in severity, no other aggravating alleviating factors.. 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 - Infectious Disease History:: Denies. - Social history:: Smoking status: Patient reports the use of cigarette tobacco products, smokes one pack cigarettes per day. - Family history:: not pertinent. ROS: 22:51 Constitutional: Negative for fever, chills, and weight loss, Cardiovascular: Negative rt for chest pain, palpitations, and edema, Respiratory: Negative for shortness of breath, cough, wheezing, and pleuritic chest pain, Abdomen/GI: Negative for abdominal pain, nausea, vomiting, diarrhea, and constipation, Skin: Negative for injury, rash, and discoloration, Neuro: Negative for headache, weakness, numbness, tingling, and seizure, 22:51 ENT: Positive for Dental pain, facial swelling, Exam: 22:51 Constitutional: This is a well developed, well nourished patient who is awake, alert, rt and in no acute distress. Head/Face: Normocephalic, atraumatic. Neck: Trachea midline, no thyromegaly or masses palpated, and no cervical lymphadenopathy. Supple, full range of motion without nuchal rigidity, or vertebral point tenderness. No Meningismus. Chest/axilla: Normal chest wall appearance and motion. Nontender with no deformity. No lesions are appreciated. Cardiovascular: Regular rate and rhythm with a normal S1 and S2. No gallops, murmurs, or rubs. Normal PMI, no JVD. No pulse deficits. Respiratory: Lungs have equal breath sounds bilaterally, clear to auscultation and percussion. No rales, rhonchi or wheezes noted. No increased work of breathing, no retractions or nasal flaring. Skin: Warm, dry with normal turgor. Normal color with no rashes, no lesions, and no evidence of cellulitis. MS/ Extremity: Pulses equal, no cyanosis. Neurovascular intact. Full, normal range of motion. 22:51 ENT: Apparently drained abscess to the right lower gum margin, no abscess amenable to drainage, multiple dental caries noted. Vital Signs: 21:03 BP 120 / 78; Pulse 102; Resp 18; Temp 98.6; Pulse Ox 100% on R/A; Weight 61.23 kg; al5 Height 5 ft. 5 in. ; Pain 9/10; 21:03 Body Mass Index 22.46 (61.23 kg, 165.1 cm) al5 21:03 Pain Scale: Adult al5 MDM: 21:10 Medical Screening Exam initiated rt 22:51 Differential diagnosis: Abscess, odontogenic infection. Data reviewed: vital signs, rt nurses notes. Test considered but Not performed: CT: Do not suspect facial abscess, appears to be contained to the dental region, do not believe that CT scan is indicated. Counseling: I had a detailed discussion with the patient and/or guardian regarding the historical points, exam findings, and any diagnostic results supporting the discharge/admit diagnosis, the need for outpatient follow up, to return to the emergency department if symptoms worsen or persist or if there are any questions or concerns that arise at home. Administered Medications: 21:16 Drug: Clindamycin PO 300 mg PO once Route: PO; al5 21:16 Follow up: Response: No adverse reaction; Medication administered at discharge. al5 21:16 Drug: Acetaminophen-Codeine PO (300 mg-30 mg) 1 tablet PO once Route: PO; al5 21:16 Follow up: Response: No adverse reaction; Medication administered at discharge. al5 Disposition Summary: 10/04/24 21:10 Discharge Ordered Notes: Location: Home rt Problem: an ongoing problem rt Symptoms: are unchanged rt Condition: Stable rt Diagnosis - Odontogenic abscess rt Followup: rt - With: Private Physician - When: 7 - 10 days - Reason: Discharge Instructions: - Discharge Summary Sheet rt - Dental Abscess rt Forms: - Medication Reconciliation Form rt - Antibiotic Education rt - Prescription Opioid Use rt - Patient Portal Instructions rt - Leadership Thank You Letter rt Prescriptions: - Clindamycin HCl 300 mg Oral Capsule - take 1 capsule ORAL route every 6 hours for 10 days; 40 capsule; Refills: 0, rt Product Selection Permitted - Tylenol-Codeine #3 300mg-30mg Oral tablet - take 1 tablet ORAL route every 4 hours As needed; 15 tablet; Refills: 0, rt Product Selection Permitted Signatures: Erick Bond MD MD rt Ivon Navarrete RN RN al5
--- NOTE | 2024-10-04 21:11 | ER ---
Nurse's Notes [facility] Name: Cora Mireles Age: 54 yrs Sex: Female : 1970 Arrival Date: 10/04/2024 Time: 19:49 Bed IW7 Private MD: Diagnosis: Odontogenic abscess Presentation: 10/04 21:03 Chief complaint: Patient states: c/o L lower facial swelling and abscess forming since al5 Saturday. states it ruptured on Saturday. states she made an appointment with the dentist and they are able to get her in next Saturday, but patient states the pain and swelling has gotten to the point where it is unbearable. Coronavirus screen: At this time, the client does not indicate any symptoms associated with coronavirus-19. Ebola Screen: No symptoms or risks identified at this time. Initial Sepsis Screen: Does the patient meet any 2 criteria? HR > 90 bpm. Does the patient have a suspected source of infection? No. Patient's initial sepsis screen is negative. Risk Assessment: Do you want to hurt yourself or someone else? Patient reports no desire to harm self or others. Onset of symptoms was September 28, 2024. 21:03 Method Of Arrival: Ambulatory al5 21:03 Acuity: STEPHEN 4 al5 Triage Assessment: 21:05 General: Appears in no apparent distress. uncomfortable, Behavior is calm, cooperative. al5 Pain: Complains of pain in right submandibular area Pain currently is 9 out of 10 on a pain scale. EENT: Reports pain in right jaw Pain is 9 out of 10 on a pain scale. Neuro: Level of Consciousness is awake, alert, obeys commands, Oriented to person, place, time, situation. Cardiovascular: Capillary refill < 3 seconds Patient's skin is warm and dry. Respiratory: Airway is patent Respiratory effort is even, unlabored, Respiratory pattern is regular, symmetrical. GI: No signs and/or symptoms were reported involving the gastrointestinal system. : No signs and/or symptoms were reported regarding the genitourinary system. Derm: Skin is intact, is healthy with good turgor, Skin is pink, warm \T\ dry. normal. Musculoskeletal: Reports swelling to L side lower jaw. VEGETABLE SCULLION: 21:09 LMP N/A - Hysterectomy, Not al5 Historical: - Allergies: 21:05 Dilaudid; al5 21:05 NSAIDS; al5 21:05 PENICILLINS; al5 - Home Meds: 21:05 Amitriptyline Oral [Active]; Dicyclomine Oral [Active]; Lorazepam Oral [Active]; al5 Prednisone Oral [Active]; Zofran Oral [Active]; - PMHx: 21:05 Crohn's; Osteoporosis; RLS; al5 - PSHx: 21:05 Appendectomy; Cholecystectomy; Gastric Bypass; al5 - Immunization history:: Adult Immunizations up to date. - Infectious Disease History:: Denies. - Social history:: Smoking status: Patient reports the use of cigarette tobacco products, smokes one pack cigarettes per day. - Family history:: not pertinent. Screenin:08 [facility] ED Fall Risk Assessment (Adult) History of falling in the last 3 months, al5 including since admission No falls in past 3 months (0 pts) Confusion or Disorientation No (0 pts) Intoxicated or Sedated No (0 pts) Impaired Gait No (0 pts) Mobility Assist Device Used No (0 pt) Altered Elimination No (0 pt) Score/Fall Risk Level 0 - 2 = Low Risk Maintained a safe environment. Abuse screen: Denies threats or abuse. Denies injuries from another. Nutritional screening: No deficits noted. Tuberculosis screening: No symptoms or risk factors identified. Assessment: 21:08 Reassessment: see triage assessment. al5 Vital Signs: 21:03 BP 120 / 78; Pulse 102; Resp 18; Temp 98.6; Pulse Ox 100% on R/A; Weight 61.23 kg; al5 Height 5 ft. 5 in. ; Pain 9/10; 21:03 Body Mass Index 22.46 (61.23 kg, 165.1 cm) al5 21:03 Pain Scale: Adult al5 ED Course: 20:11 Patient arrived in ED. gm2 20:11 Erick Bond MD is Attending Physician. rt 21:05 Triage completed. al5 21:08 Arm band placed on right wrist. Patient placed in waiting room, in view of staff al5 members, Patient notified of wait time. 21:08 Patient has correct armband on for positive identification. Provided Education on: al5 notification of wait time. 21:08 No provider procedures requiring assistance completed. al5 21:16 Patient did not have IV access during this emergency room visit. al5 Administered Medications: 21:16 Drug: Clindamycin PO 300 mg PO once Route: PO; al5 21:16 Follow up: Response: No adverse reaction; Medication administered at discharge. al5 21:16 Drug: Acetaminophen-Codeine PO (300 mg-30 mg) 1 tablet PO once Route: PO; al5 21:16 Follow up: Response: No adverse reaction; Medication administered at discharge. al5 Medication: 21:08 VIS not applicable for this client. al5 Outcome: 21:10 Discharge ordered by . rt 21:17 Discharged to home ambulatory, with significant other, al5 21:17 Condition: good 21:17 Discharge instructions given to patient, Instructed on discharge instructions, follow up and referral plans. medication usage, Demonstrated understanding of instructions, follow-up care, medications, Prescriptions given X 2, 21:17 Patient left the ED. al5 Signatures: Erick Bond MD MD rt Dorys Koehler [facility] Ivon Navarrete RN RN al5
[2024-10-04] MEDS ORDERED: CODEINE 30MG/APAP 300MG TAB ONE (21:13)
[2024-10-06 08:54] VITALS: BP 120/78; TEMP 98.6; O2SAT 100
== END 2024-10-04 21:17 | disposition home or self-care (01) ==
LOC: ER 19:49
DX: K12.2 Cellulitis and abscess of mouth (principal)
CPT/HCPCS: 99283

== ENCOUNTER 2025-02-01 20:35 | Emergency (ER) | payer SELFPAY ==
[2025-02-01] MEDS ORDERED: ONDANSETRON 4 MG (ODT) TAB ONE (20:57)
[2025-02-01] MEDS ORDERED: HYDROCODONE/APAP 7.5/325 MG TAB ONE (20:58)
--- NOTE | 2025-02-01 21:38 | RAD REPORT ---
EXAMINATION: ONE VIEW CHEST XR CLINICAL INDICATION: Female, 55 years old.,RIB PAIN - LEFT TECHNIQUE: Frontal chest projection is submitted. Examination is limited by patient positioning and t echnique. COMPARISON: 03/29/2010 FINDINGS: The lungs are well inflated and clear. No pneumothorax or sizable effusion. The heart is normal in s ize. Mediastinal contours are unremarkable. IMPRESSION: No acute intrathoracic abnormalities.
--- NOTE | 2025-02-01 21:39 | RAD REPORT ---
EXAMINATION: Ribs Left INDICATION: PAIN COMPARISON: Chest radiograph of the same day TECHNIQUE: Frontal and multiple oblique views of the left rib cage. FINDINGS: Included portions of the chest reveal clear lungs. There is no effusion or pneumothorax. Mediastinal contours are within normal limits. No displaced rib fracture is identified. No suspicious focal osseous lesion.. IMPRESSION: No acute fractures are identified radiographically..
[2025-02-01] MEDS ORDERED: DIAZEPAM 2 MG TABLET ONE (21:56)
--- NOTE | 2025-02-01 21:56 | ER ---
Nurse's Notes [facility] Name: Cora Mireles Age: 55 yrs Sex: Female : 1970 Arrival Date: 02/01/2025 Time: 20:35 Bed 11 Private MD: Diagnosis: Left lower rib pain Presentation: 02/01 20:45 Chief complaint: Patient states: left sided rib pain beginning yesterday. i have severe lg3 osteoporosis and im concerned it may be broke. Coronavirus screen: Client denies travel out of the [place] in the last 14 days. At this time, the client does not indicate any symptoms associated with coronavirus-19. Ebola Screen: No symptoms or risks identified at this time. Initial Sepsis Screen: Does the patient meet any 2 criteria? No. Patient's initial sepsis screen is negative. Does the patient have a suspected source of infection? No. Patient's initial sepsis screen is negative. Risk Assessment: Do you want to hurt yourself or someone else?. Onset of symptoms was January 31, 2025. 20:45 Method Of Arrival: Ambulatory lg3 20:45 Acuity: STEPHEN 4 lg3 Triage Assessment: 20:47 General: Appears in no apparent distress. uncomfortable, Behavior is calm, cooperative. lg3 Pain: Complains of pain in left rib area. EENT: No deficits noted. No signs and/or symptoms were reported regarding the EENT system. Neuro: No deficits noted. Glasgow Agitation-Sedation Scale (RASS): 0 - Alert and Calm Level of Consciousness is awake, alert, obeys commands, Oriented to person, place, time, situation. Cardiovascular: No deficits noted. Denies chest pain, shortness of breath, Capillary refill < 3 seconds Clubbing of nail beds is absent JVD is absent Patient's skin is warm and dry. Respiratory: No deficits noted. Airway is patent Respiratory effort is even, unlabored, Respiratory pattern is regular, symmetrical, Breath sounds are clear bilaterally. GI: No deficits noted. No signs and/or symptoms were reported involving the gastrointestinal system. : No signs and/or symptoms were reported regarding the genitourinary system. Derm: No deficits noted. No signs and/or symptoms reported regarding the dermatologic system. Skin is intact, is healthy with good turgor, Skin is dry, Skin is normal, Skin temperature is warm. Musculoskeletal: Circulation, motion, and sensation intact. Range of motion: intact in all extremities, Reports pain in left rib area. Historical: - Allergies: 20:47 Dilaudid; lg3 20:47 NSAIDS; lg3 20:47 PENICILLINS; lg3 - PMHx: 20:47 Crohn's; Osteoporosis; RLS; lg3 - PSHx: 20:47 Appendectomy; Cholecystectomy; Gastric Bypass; lg3 - Immunization history:: Adult Immunizations up to date. - Infectious Disease History:: Denies. - Social history:: Smoking status: Patient reports the use of cigarette tobacco products, smokes one pack cigarettes per day. Patient/guardian denies using alcohol, street drugs. Screenin:49 [facility] ED Fall Risk Assessment (Adult) History of falling in the last 3 months, lg3 including since admission No falls in past 3 months (0 pts) Confusion or Disorientation No (0 pts) Intoxicated or Sedated No (0 pts) Impaired Gait No (0 pts) Mobility Assist Device Used No (0 pt) Altered Elimination No (0 pt) Score/Fall Risk Level 0 - 2 = Low Risk Oriented to surroundings, Maintained a safe environment, Educated pt \T\ family on fall prevention, incl call for assistance when getting out of bed, Assessed \T\ reinforced patient's understanding of fall precautions. Abuse screen: Denies threats or abuse. Denies injuries from another. Nutritional screening: No deficits noted. Tuberculosis screening: No symptoms or risk factors identified. Assessment: 20:49 General: see triage assessment. lg3 Vital Signs: 20:45 BP 114 / 87; Pulse 91; Resp 16 S; Temp 98.1(O); Pulse Ox 100% on R/A; Weight 62.14 kg lg3 (R); Height 5 ft. 4 in. (R); Pain 8/10; 21:58 BP 121 / 83; Pulse 88; Resp 17; Pulse Ox 100% on R/A; dd2 20:45 Body Mass Index 23.52 (62.14 kg, 162.56 cm) lg3 20:45 Pain Scale: Adult lg3 ED Course: 20:39 Patient arrived in ED. gm2 20:47 Triage completed. lg3 20:47 Arm band placed on right wrist. lg3 20:49 Rosa Elena Beckford RN is Primary Nurse. lg3 20:49 Patient has correct armband on for positive identification. Bed in low position. Call lg3 light in reach. Side rails up X 1. Client placed on continuous cardiac and pulse oximetry monitoring. NIBP monitoring applied. Door closed. Noise minimized. Warm blanket given. Pillow given. 20:50 Lavonne Rios FNP-C is [facility]. kb 20:50 Mark Prater MD is Attending Physician. kb 21:19 Ribs Left XRAY In Process Unspecified. EDMS 21:19 Chest Single View XRAY In Process Unspecified. EDMS 21:58 Provided Education on: d/c education. dd2 21:58 No provider procedures requiring assistance completed. Patient did not have IV access dd2 during this emergency room visit. Administered Medications: 21:02 Drug: Hydrocodone-Acetaminophen PO (7.5 mg-325 mg) 1 tabs PO once Route: PO; dd2 21:02 Drug: Ondansetron Oral Disintegrating Tablet Oral Disintegrating Tablet 4 mg PO once dd2 Route: PO; 21:57 Drug: Diazepam PO 2 mg PO once Route: PO; dd2 Medication: 20:49 VIS not applicable for this client. lg3 Outcome: 21:55 Discharge ordered by MD. kb 21:58 Discharged to home ambulatory, dd2 21:58 Condition: stable 21:58 Discharge instructions given to patient, Instructed on discharge instructions, follow up and referral plans. medication usage, Demonstrated understanding of instructions, follow-up care, medications, Prescriptions given X 2, 22:01 Patient left the ED. dd2 Signatures: Dispatcher [employer] EDMN Lavonne Rios FNP-C FNP-Rosa Elena Miller RN RN lg3 Dorys Koehler 2 NEVAEH HEMPHILL RN RN dd2
--- NOTE | 2025-02-01 21:56 | EDPHYS ---
Physician Documentation [facility] Name: Cora Mireles Age: 55 yrs Sex: Female : 1970 Arrival Date: 02/01/2025 Time: 20:35 Bed 11 Private MD: ED Physician Mark Prater HPI: 02/01 23:08 This 55 yrs old Female presents to ER via Ambulatory with complaints of Rib pain. kb 23:08 Patient is a 55-year-old female who presents for left anterior lower rib pain that kb started yesterday. States she has a history of bad osteoporosis and has fractured her ribs before, it feels like that this time as well. States she was leaning over to plug in her time checker and leaned too far, slipped and fell hitting her chest against the bed rail. Denies any other injury or trauma. Denies shortness of breath. Does report pain is worse with palpation and deep breath. Historical: - Allergies: 20:47 Dilaudid; lg3 20:47 NSAIDS; lg3 20:47 PENICILLINS; lg3 - PMHx: 20:47 Crohn's; Osteoporosis; RLS; lg3 - PSHx: 20:47 Appendectomy; Cholecystectomy; Gastric Bypass; lg3 - Immunization history:: Adult Immunizations up to date. - Infectious Disease History:: Denies. - Social history:: Smoking status: Patient reports the use of cigarette tobacco products, smokes one pack cigarettes per day. Patient/guardian denies using alcohol, street drugs. ROS: 23:07 Constitutional: As per HPI kb Exam: 23:07 Constitutional: This is a well developed, well nourished patient who is awake, alert, kb and in no acute distress. Head/Face: Normocephalic, atraumatic. ENT: Moist Mucous membranes Cardiovascular: Regular rate Respiratory: Respirations even and unlabored. No increased work of breathing. Talking in full sentences Skin: Warm, dry with normal turgor. Normal color. MS/ Extremity: Pulses equal, no cyanosis. Neurovascular intact. Full, normal range of motion. Neuro: Awake and alert, GCS 15, oriented to person, place, time, and situation. 23:07 Chest/axilla: Inspection: normal, Palpation: tenderness, that is severe, of the left breast, that totally reproduces the patient's complaints, Vital Signs: 20:45 BP 114 / 87; Pulse 91; Resp 16 S; Temp 98.1(O); Pulse Ox 100% on R/A; Weight 62.14 kg lg3 (R); Height 5 ft. 4 in. (R); Pain 8/10; 21:58 BP 121 / 83; Pulse 88; Resp 17; Pulse Ox 100% on R/A; dd2 20:45 Body Mass Index 23.52 (62.14 kg, 162.56 cm) lg3 20:45 Pain Scale: Adult lg3 MDM: 20:50 Medical Screening Exam initiated kb 21:58 External Records Reviewed: [place] [facility] NURSE aware reviewed. kb 23:08 Differential diagnosis: fracture, contusion, pneumothorax. Data reviewed: vital signs, kb nurses notes. Historians other than the Patient: Spouse/Significant Other: spouse. Counseling: I had a detailed discussion with the patient and/or guardian regarding the historical points, exam findings, and any diagnostic results supporting the discharge/admit diagnosis, radiology results, the need for outpatient follow up, a family practitioner, to return to the emergency department if symptoms worsen or persist or if there are any questions or concerns that arise at home. 02/01 20:51 Order name: Ribs Left XRAY; Complete Time: 21:49 kb 02/01 20:56 Order name: Chest Single View XRAY; Complete Time: 21:49 kb Administered Medications: 21:02 Drug: Hydrocodone-Acetaminophen PO (7.5 mg-325 mg) 1 tabs PO once Route: PO; dd2 21:02 Drug: Ondansetron Oral Disintegrating Tablet Oral Disintegrating Tablet 4 mg PO once dd2 Route: PO; 21:57 Drug: Diazepam PO 2 mg PO once Route: PO; dd2 Disposition: 02/02 13:31 Co-signature as Attending Physician, Mark Prater MD I agree with the assessment and carolynn plan of care. Disposition Summary: 02/01/25 21:55 Discharge Ordered Notes: Location: Home kb Condition: Stable kb Diagnosis - Left lower rib pain kb Followup: kb - With: Emergency Department - When: As needed - Reason: Worsening of condition Followup: kb - With: Private Physician - When: 2 - 3 days - Reason: Recheck today's complaints, Continuance of care, Re-evaluation by your physician Discharge Instructions: - Discharge Summary Sheet kb - Chest Wall Pain, [id number] kb Forms: - Medication Reconciliation Form kb - Antibiotic Education kb - Prescription Opioid Use kb - Patient Portal Instructions kb - Leadership Thank You Letter kb Prescriptions: - acetaminophen-codeine 300-30 mg Oral tablet - take 1 tablet ORAL route every 4 to 6 hours as needed for pain; 12 tablet; kb Refills: 0, Product Selection Permitted - orphenadrine citrate 100 mg Oral Tablet Sustained Release - take 1 tablet ORAL route 2 times per day As needed; 20 tablet; Refills: 0, kb Product Selection Permitted Signatures: Dispatcher [employer] EDMS Lavonne Rios, MAGALY-C MAGALY-Mark Perez MD MD cha Able, Lacie RN RN lg3 NEVAEH HEMPHILL RN RN dd2 Corrections: (The following items were deleted from the chart) 02/01 20:56 20:56 Chest Single View+[email or web address] ordered. EDWI EDMS
[2025-02-02 02:16] VITALS: TEMP 98.1; O2SAT 100
[2025-02-02 02:17] VITALS: BP 121/83
== END 2025-02-01 22:01 | disposition home or self-care (01) ==
LOC: ER 20:35
DX: R07.81 Pleurodynia (principal); W01.198A Fall on same level from slipping, tripping and stumbling with subsequent striking against other object, initial encounter
CPT/HCPCS: 71045; 99283; Q0162